=== PATIENT | female | born 1955 | race Asian ===

== ENCOUNTER 2017-07-26 19:21 | Inpatient (IN) | payer MEDICARE, MEDICAID ==
--- NOTE | 2017-07-26 19:36 | ED Physician Chart ---
ED Chief Complaint/HPI - Patient Information Date Seen:: 07/26/17 Time Seen:: 19:25 Chief Complaint:: abnormal labs History of Present Illness:: location: general quality: abnormal labs, elevated WBC severity: mild duration: one day context: SNF pt with lifelong epilepsy and ankylosing spondylitis. pt on seizure meds able to walk/talk lived in [place] lived with her sister and boyfriend prior to injury, Jun 6 pt had fall broke C4/C5 had surgery to repair spinal fracture. after the neck injury pt was unable to use arms or legs. pt in ICU for a few weeks, developed pneumonia, performed tracheostomy Jul 14. niece is at bedside and gives history. states pt is able to understand and interact with people but cannot speak due to tracheostomy. pt can mouth words. pt is awake, alert and in no acute distress. pt was at [facility] and had routine labs drawn today. abnormal findings so sent to ER for medical evaluation. pt does not report any acute discomfort. niece has spoken to patient and says patient is having some discomfort about the tracheostomy site. no fever, no tachycardia, no abnormal vital signs reported from facility or during transport. mod factors; none assoc s/s; none hx from niece and medics. and Dr. Mares. Historian:: EMS, Family Member Review:: Nurse's Note Reviewed, EMS run form Reviewed ED Review of Systems - Review of Systems General/Constitutional: No fever Skin: No rash Cardio Vascular: No edema Pulmonary: No cough GI: No vomiting, No diarrhea Allergic/Immuno: No angioedema Neurological: No seizure Family Medical History - Family Member Mother History Unknown: Yes ED Physical Exam - Physical Examination General/Constitutional: Awake, Well-developed, well-nourished, Alert, Non-toxic appearing Head: Atraumatic Eyes: Lids, conjuctiva normal, PERRL, EOMI Skin: Nl inspection ENMT: External ears, nose nl Neck: Nontender, No nuchal rigidity Respiratory: Nl effort/Exclusion, Clear to Auscultation (mild crackles bilateral lung base), No Wheeze/Rhonchi/Rales Cardio Vascular: RRR, No murmur, gallop, rubs, NL S1 S2 GI: No tenderness/rebounding/guarding : No CVA tenderness Extremities: No tenderness or effusion, No edema, Normal digits & nails Neuro/Psych: Alert/oriented ED Labs/Radiology/EKG Results - Lab Results Results: Laboratory Tests 07/26/17 07/26/17 07/26/17 20:56 20:56 20:56 WBC RBC Hgb Hct MCV MCH MCHC Differential RDW Plt Count MPV Neutrophils % Lymphocytes % Monocytes % Eosinophils % Basophils % Whole Bld Lactic Acid 1.23 Phenytoin 5.0 L Valproic Acid 30.9 L Carbamazepine 4.0 07/26/17 20:56 WBC 11.2 H RBC 2.61 L Hgb 8.1 L Hct 24.5 L MCV 94.1 MCH 30.9 MCHC Differential 32.8 RDW 15.9 Plt Count 337 MPV 7.0 Neutrophils % 75.2 Lymphocytes % 13.4 L Monocytes % 7.8 Eosinophils % 2.9 Basophils % 0.7 Whole Bld Lactic Acid Phenytoin Valproic Acid Carbamazepine - EKG Interpretations Comments:: EKG NSR [address] elevation no acute ST depression normal axis otherwise normal EKG pt reports no chest pain ER READ ED Assessment - Assessment General Assessment: pt was diagnosed with pneumonia about 2 weeks ago and initially treated in [facility]. admitted to ICU placed on cefipime, then switched to zosyn. staph aureus pneumonia. was treated for at least 5 days on cefipime then switched to zosyn. pt likely received a 7 day course of IV antibiotic. pt had tactile fever 2 days ago as measured by niece. ED Septic Shock - . Is Septic Shock (SBP<90, OR Lactate>4 mmol\L) present?: No ED Reassessment (Disposition) - Reassessment Reassessment:: pt stable vital signs during ER stay. CXR no acute rib fracture no acute pneumothorax right lower lobe infiltrate pleural effusion right side ER READ Reassessment Condition:: Improved - Diagnosis Diagnosis:: right lower lobe pneumonia - Patient Disposition Discharge/Transfer:: Acute Care w/in this hosp Admitting Medical Physician:: Maegan Mares Time:: 23:00 Condition at Disposition:: Stable, Improved
[2017-07-26] MEDS ORDERED: Sodium Chloride 0.9% 1,000 ML IV ONE (20:30)
[2017-07-26 21:14] LABS: % BASOPHILS 0.7 % (0.0-2.0); % EOSINOPHILS 2.9 % (0.0-5.0); % LYMPHOCYTES 13.4 % (20.0-50.0); % MONOCYTES 7.8 % (2.0-10.0); % NEUTROPHILS 75.2 % (40.0-80.0); BASOPHILE ABSOLUTE 0.1 Th/cumm (0-0.2); EOSINOPHILE ABSOLUTE 0.3 Th/cmm (0.1-0.4); HEMATOCRIT 24.5 % (41.0-60); HEMOGLOBIN 8.1 gm/dL (12-16); LYMPHOCYTE ABSOLUTE 1.5 Th/cmm (1.5-3.0); MEAN CELL VOLUME 94.1 fl (81-100); MEAN CORPUSCULAR HEMOGLOBIN 30.9 pg (27.0-31.0); MEAN CORPUSCULAR HGB CONC 32.8 pg (28.0-36.0); MONOCYTE ABSOLUTE 0.9 Th/cmm (0.3-1.0); NEUTROPHILE ABSOLUTE 8.4 Th/cmm (1.8-8.0); PLATELET COUNT 337 Th/cmm (150-400); RED BLOOD COUNT 2.61 Mil/cmm (3.80-5.10); RED CELL DISTRIBUTION WIDTH 15.9 % (11.5-20.0); WHITE BLOOD COUNT 11.2 Th/cmm (4.8-10.8)
[2017-07-26 21:24] LABS: URINE BILIRUBIN NEGATIVE (NEGATIVE); URINE BLOOD TRACE (NEGATIVE); URINE GLUCOSE (UA) NEGATIVE (NEGATIVE); URINE KETONE NEGATIVE (NEGATIVE); URINE LEUKOCYTE ESTERASE TRACE (NEGATIVE); URINE MICROSCOPIC INDICATED? YES; URINE NITRATE NEGATIVE (NEGATIVE); URINE PH 5.5 (4.6 - 8.0); URINE PROTEIN NEGATIVE (NEGATIVE); URINE SOURCE FOLEY PORT; URINE UROBILINOGEN 0.2 E.U./dL (0.2 - 1.0)
[2017-07-26 21:25] LABS: ALB/GLOB RATIO 0.5 (1.0-1.8); ALBUMIN 2.7 gm/dL (3.7-5.3); ALKALINE PHOSPHATASE 152 U/L (34-104); BILIRUBIN,TOTAL 0.5 mg/dL (0.3-1.0); BUN - UREA NITROGEN 37 mg/dL (7-25); CALCIUM SERUM 8.7 mg/dL (8.6-10.3); CARBON DIOXIDE 27.8 mEq/L (21.0-31.0); CHLORIDE 91 mEq/L (98-107); CREATININE - SERUM 0.6 mg/dL (0.6-1.2); GFR AFRICAN-AMERICAN > 60.0 ml/min (>90); GFR NON AFRICAN-AMERICAN > 60.0 ml/min; GLUCOSE 136 mg/dL (70-105); SGOT 38 U/L (13-39); SGPT/ALT 56 U/L (7-52); SODIUM SERUM 123 mEq/L (136-145)
[2017-07-26] MEDS ORDERED: Piperacillin Sodium/Tazobact 3.375 gm Vial IV ONE (21:35)
[2017-07-26 21:39] LABS: URINE CLARITY SLIGHTLY HAZY (CLEAR); URINE COLOR YELLOW; URINE EPITHELIAL CELLS FEW /lpf (FEW)
[2017-07-26 21:40] LABS: URINE BACTERIA 1+ /hpf (NONE SEEN)
[2017-07-26 22:55] LABS: ANION GAP 10.3 (7.0-16.0); POTASSIUM SERUM 6.1 mEq/L (3.5-5.1)
[2017-07-27] MEDS ORDERED: Pneumococcal Vaccine 0.5 mL Vial IM ONE (00:52)
[2017-07-27] MEDS ORDERED: Influenza Vaccine 0.5 mL Syr IM ONE (00:52)
[2017-07-27] MEDS: Sodium Chloride 0.9% 1,000 ML IV SCH ×2 (00:57→11:00)
[2017-07-27 05:36] LABS: ANION GAP 9.3 (7.0-16.0); BUN - UREA NITROGEN 30 mg/dL (7-25); CALCIUM SERUM 8.6 mg/dL (8.6-10.3); CARBON DIOXIDE 28.9 mEq/L (21.0-31.0); CHLORIDE 100 mEq/L (98-107); CREATININE - SERUM 0.4 mg/dL (0.6-1.2); GFR AFRICAN-AMERICAN > 60.0 ml/min (>90); GFR NON AFRICAN-AMERICAN > 60.0 ml/min; GLUCOSE 137 mg/dL (70-105); POTASSIUM SERUM 4.2 mEq/L (3.5-5.1); SODIUM SERUM 134 mEq/L (136-145)
[2017-07-27 05:52] LABS: % BASOPHILS 0.6 % (0.0-2.0); % EOSINOPHILS 3.7 % (0.0-5.0); % LYMPHOCYTES 20.9 % (20.0-50.0); % MONOCYTES 8.2 % (2.0-10.0); % NEUTROPHILS 66.6 % (40.0-80.0); BASOPHILE ABSOLUTE 0.1 Th/cumm (0-0.2); EOSINOPHILE ABSOLUTE 0.4 Th/cmm (0.1-0.4); HEMATOCRIT 24.6 % (41.0-60); LYMPHOCYTE ABSOLUTE 2.2 Th/cmm (1.5-3.0); MEAN CELL VOLUME 94.8 fl (81-100); MEAN CORPUSCULAR HEMOGLOBIN 30.9 pg (27.0-31.0); MEAN CORPUSCULAR HGB CONC 32.6 pg (28.0-36.0); MONOCYTE ABSOLUTE 0.8 Th/cmm (0.3-1.0); NEUTROPHILE ABSOLUTE 6.8 Th/cmm (1.8-8.0); PLATELET COUNT 381 Th/cmm (150-400); RED BLOOD COUNT 2.59 Mil/cmm (3.80-5.10); RED CELL DISTRIBUTION WIDTH 16.3 % (11.5-20.0); WHITE BLOOD COUNT 10.3 Th/cmm (4.8-10.8)
[2017-07-27] MEDS ORDERED: Piperacillin Sodium/Tazobact 3.375 gm Vial IV ONE (05:52)
--- NOTE | 2017-07-27 07:56 | Diagnostic Imaging Report ---
Portable chest x-ray HISTORY: Shortness of breath The heart appears enlarged. There appears to be elevation right hemidiaphragm. There is an approximate 1.4 cm density projecting over the left mid chest. This may be associated with patient's overlying respiratory tubing. A follow-up exam recommended for exclusion of a pulmonary parenchymal nodule. Tracheostomy seen. IMPRESSION: 1. Density projecting over the left mid chest. The finding may be related to the overlying respiratory tubing. However, a follow-up exam is needed for exclusion of a pulmonary nodule.
[2017-07-27] MEDS: Chlorhexidine Gluconate 0.12% 15mL Mouthwash MM SCH ×2 (09:26→19:57)
[2017-07-27] MEDS: Vancomycin HCl 1.5 GM in Sodium Chloride 0.9% 500 ML IV SCH ×2 (09:29→21:23)
--- NOTE | 2017-07-27 10:02 | History and Physical ---
History of Present Illness - HPI Vital Signs: Last Vital Signs Temp 99.4 F 07/27/17 04:00 Pulse 60 07/27/17 09:43 Resp 16 07/27/17 06:00 BP 127/45 07/27/17 06:00 Pulse Ox 99 07/27/17 09:43 Family Medical History - Family Member Mother History Unknown: Yes - Medications Home Medications: Home Medication Medication Instructions Recorded Type Acetaminophen [Tylenol] 650 mg GT BID 07/26/17 History Acetaminophen [Tylenol] 650 mg GT Q4HR PRN 07/26/17 History Acetaminophen [Tylenol] 650 mg GT Q4HR PRN 07/26/17 History Amlodipine Besylate 10 mg GT DAILY 07/26/17 History Ascorbic Acid [Vitamin C] 500 mg GT DAILY 07/26/17 History Aspirin 81 mg GT DAILY 07/26/17 History Bisacodyl [Dulcolax 10 Mg Supp] 10 mg RC DAILY PRN 07/26/17 History Carbamazepine 100 mg GT QID 07/26/17 History Cran/Vitc/Mannose/Fos/Bromeln 30 ml GT DAILY 07/26/17 History [Uti-Stat 887 ml] Doxazosin Mesylate [Cardura*] 4 mg GT DAILY 07/26/17 History Fleet Enema [Fleet Enema] 1 bottle RC Q48HR PRN 07/26/17 History Magnesium Hydroxide [Milk of 30 ml GT HS PRN 07/26/17 History Magnesia] Multivitamin with Minerals 1 tab GT DAILY 07/26/17 History [Multivitamins with Minerals] Nitroglycerin [Nitrostat*] 0.3 mg SL Q5MIN PRN 07/26/17 History Phenytoin 100 mg GT TID 07/26/17 History Simvastatin [Zocor] 40 mg GT HS 07/26/17 History Valproic Acid [Depakene] 250 mg GT QID 07/26/17 History - Allergies Allergies/Adverse Reactions: Allergies Allergy/AdvReac Type Severity Reaction Status Date / Time No Known Allergies Allergy Verified 07/26/17 19:38 - Lab Results All Lab Results last 24 hours: Laboratory Results - last 24 hr 07/27/17 07/27/17 07/27/17 04:35 04:35 04:35 WBC 10.3 RBC 2.59 L Hgb 8.0 L Hct 24.6 L MCV 94.8 MCH 30.9 MCHC Differential 32.6 RDW 16.3 Plt Count 381 MPV 7.0 Neutrophils % 66.6 Lymphocytes % 20.9 Monocytes % 8.2 Eosinophils % 3.7 Basophils % 0.6 Sodium 134 L Potassium 4.2 Chloride 100 Carbon Dioxide 28.9 Anion Gap 9.3 BUN 30 H Creatinine 0.4 L Est GFR ( Amer) > 60.0 Est GFR (Non-Af Amer) > 60.0 BUN/Creatinine Ratio 75.0 Glucose 137 H Whole Bld Lactic Acid 0.93 Calcium 8.6 TSH 07/27/17 04:35 WBC RBC Hgb Hct MCV MCH MCHC Differential RDW Plt Count MPV Neutrophils % Lymphocytes % Monocytes % Eosinophils % Basophils % Sodium Potassium Chloride Carbon Dioxide Anion Gap BUN Creatinine Est GFR ( Amer) Est GFR (Non-Af Amer) BUN/Creatinine Ratio Glucose Whole Bld Lactic Acid Calcium TSH 2.28
[2017-07-27] MEDS: Albuterol/Ipratropium Neb 3 ML AERS HHN SCH ×3 (15:52→22:48)
[2017-07-27] MEDS: Budesonide 0.5 Mg/2 mL Ud HHN SCH (19:01)
[2017-07-27] MEDS ORDERED: Hydrocodone/APAP 5mg/325mg Tab GT PRN (19:36)
[2017-07-27] MEDS: Hydrocodone/APAP 10 mg/325 mg Tab GT PRN (19:57)
[2017-07-28] MEDS: Hydrocodone/APAP 10 mg/325 mg Tab GT PRN ×2 (00:50→09:00)
[2017-07-28] MEDS: Sodium Chloride 0.9% 1,000 ML IV SCH ×2 (02:57→20:55)
[2017-07-28] MEDS: Albuterol/Ipratropium Neb 3 ML AERS HHN SCH ×6 (03:00→23:07)
[2017-07-28] MEDS: Budesonide 0.5 Mg/2 mL Ud HHN SCH ×2 (06:52→19:01)
[2017-07-28 07:47] LABS: % BASOPHILS 0.2 % (0.0-2.0); % EOSINOPHILS 2.3 % (0.0-5.0); % LYMPHOCYTES 17.4 % (20.0-50.0); % MONOCYTES 11.1 % (2.0-10.0); EOSINOPHILE ABSOLUTE 0.2 Th/cmm (0.1-0.4); HEMATOCRIT 25.9 % (41.0-60); HEMOGLOBIN 8.5 gm/dL (12-16); LYMPHOCYTE ABSOLUTE 1.7 Th/cmm (1.5-3.0); MEAN CELL VOLUME 93.5 fl (81-100); MEAN CORPUSCULAR HEMOGLOBIN 30.6 pg (27.0-31.0); MEAN CORPUSCULAR HGB CONC 32.7 pg (28.0-36.0); MEAN PLATELET VOLUME 6.7 fl; MONOCYTE ABSOLUTE 1.1 Th/cmm (0.3-1.0); NEUTROPHILE ABSOLUTE 6.7 Th/cmm (1.8-8.0); PLATELET COUNT 363 Th/cmm (150-400); RED BLOOD COUNT 2.77 Mil/cmm (3.80-5.10); RED CELL DISTRIBUTION WIDTH 16.3 % (11.5-20.0); WHITE BLOOD COUNT 9.7 Th/cmm (4.8-10.8)
[2017-07-28] MEDS: Chlorhexidine Gluconate 0.12% 15mL Mouthwash MM SCH ×2 (08:05→20:49)
[2017-07-28 08:44] LABS: ALB/GLOB RATIO 0.5 (1.0-1.8); ALBUMIN 2.4 gm/dL (3.7-5.3); ALKALINE PHOSPHATASE 163 U/L (34-104); ANION GAP 10.3 (7.0-16.0); BILIRUBIN,DIRECT 0.21 mg/dL (0.0-0.2); BILIRUBIN,TOTAL 0.5 mg/dL (0.3-1.0); BUN - UREA NITROGEN 22 mg/dL (7-25); CALCIUM SERUM 8.3 mg/dL (8.6-10.3); CARBON DIOXIDE 26.8 mEq/L (21.0-31.0); CHLORIDE 104 mEq/L (98-107); CREATININE - SERUM 0.4 mg/dL (0.6-1.2); GFR AFRICAN-AMERICAN > 60.0 ml/min (>90); GFR NON AFRICAN-AMERICAN > 60.0 ml/min; GLUCOSE 135 mg/dL (70-105); POTASSIUM SERUM 4.1 mEq/L (3.5-5.1); SGOT 43 U/L (13-39); SGPT/ALT 56 U/L (7-52); SODIUM SERUM 137 mEq/L (136-145); TOTAL PROTEIN,SERUM 7.1 gm/dL (6.0-8.3)
--- NOTE | 2017-07-28 09:00 | Diagnostic Imaging Report ---
Portable chest x-ray HISTORY: Shortness of breath Compared to prior exam 07/26/2017, there remains a density in the right lower hemithorax. Changes may be associated with pleural fluid. A CT scan would provide for further assessment A faint linear density is noted in the left perihilar region suggesting subsegmental atelectasis. IMPRESSION: 1. Persistent density right lower hemithorax. Exact location of the right hemidiaphragm is unclear. Changes may be associated with pleural fluid. A CT scan would provide further assessment if needed. 2. Faint linear density within the left perihilar region probably associated with subsegmental atelectasis.
[2017-07-28] MEDS: Aspirin 81mg Chewable Tab GT SCH (09:13)
[2017-07-28] MEDS: Ascorbic Acid 500 mg/5 mL UDC GT SCH (09:13)
[2017-07-28] MEDS: Vancomycin HCl 1.5 GM in Sodium Chloride 0.9% 500 ML IV SCH ×2 (09:15→20:49)
--- NOTE | 2017-07-28 09:29 | General Progress Note ---
Subjective - Review of Systems Events since last encounter: patient in no acute distress Objective - Results Result Diagrams: 07/28/17 07:30 07/28/17 07:30 Recent Labs: Laboratory Last Values WBC 9.7 Th/cmm (4.8-10.8) 07/28/17 07:30 RBC 2.77 Mil/cmm (3.80-5.10) L 07/28/17 07:30 Hgb 8.5 gm/dL (12-16) L 07/28/17 07:30 Hct 25.9 % (41.0-60) L 07/28/17 07:30 MCV 93.5 fl (81-100) 07/28/17 07:30 MCH 30.6 pg (27.0-31.0) 07/28/17 07:30 MCHC Differential 32.7 pg (28.0-36.0) 07/28/17 07:30 RDW 16.3 % (11.5-20.0) 07/28/17 07:30 Plt Count 363 Th/cmm (150-400) 07/28/17 07:30 MPV 6.7 fl 07/28/17 07:30 Neutrophils % 69.0 % (40.0-80.0) 07/28/17 07:30 Lymphocytes % 17.4 % (20.0-50.0) L 07/28/17 07:30 Monocytes % 11.1 % (2.0-10.0) H 07/28/17 07:30 Eosinophils % 2.3 % (0.0-5.0) 07/28/17 07:30 Basophils % 0.2 % (0.0-2.0) 07/28/17 07:30 Sodium 137 mEq/L (136-145) 07/28/17 07:30 Potassium 4.1 mEq/L (3.5-5.1) 07/28/17 07:30 Chloride 104 mEq/L (98-107) 07/28/17 07:30 Carbon Dioxide 26.8 mEq/L (21.0-31.0) 07/28/17 07:30 Anion Gap 10.3 (7.0-16.0) 07/28/17 07:30 BUN 22 mg/dL (7-25) 07/28/17 07:30 Creatinine 0.4 mg/dL (0.6-1.2) L 07/28/17 07:30 Est GFR ( Amer) > 60.0 ml/min (>90) 07/28/17 07:30 Est GFR (Non-Af Amer) > 60.0 ml/min 07/28/17 07:30 BUN/Creatinine Ratio 55.0 07/28/17 07:30 Glucose 135 mg/dL (70-105) H 07/28/17 07:30 Whole Bld Lactic Acid 0.93 mmol/L (0.60-1.99) 07/27/17 04:35 Calcium 8.3 mg/dL (8.6-10.3) L 07/28/17 07:30 Total Bilirubin 0.5 mg/dL (0.3-1.0) 07/28/17 07:30 Direct Bilirubin 0.21 mg/dL (0.0-0.2) H 07/28/17 07:30 AST 43 U/L (13-39) H 07/28/17 07:30 ALT 56 U/L (7-52) H 07/28/17 07:30 Alkaline Phosphatase 163 U/L (34-104) H 07/28/17 07:30 Ammonia 77 umol/L (16-53) H 07/28/17 07:30 Total Protein 7.1 gm/dL (6.0-8.3) 07/28/17 07:30 Albumin 2.4 gm/dL (3.7-5.3) L 07/28/17 07:30 Globulin 4.7 gm/dL 07/28/17 07:30 Albumin/Globulin Ratio 0.5 (1.0-1.8) L 07/28/17 07:30 TSH 2.28 uIU/ml (0.34-5.60) 07/27/17 04:35 Urine Source [place] 07/26/17 20:30 Urine Color YELLOW 07/26/17 20:30 Urine Clarity SLIGHTLY HAZY (CLEAR) 07/26/17 20:30 Urine pH 5.5 (4.6 - 8.0) 07/26/17 20:30 Ur Specific [place] 1.010 (1.005-1.030) 07/26/17 20:30 Urine Protein NEGATIVE mg/dL (NEGATIVE) 07/26/17 20:30 Urine Glucose (UA) NEGATIVE mg/dL (NEGATIVE) 07/26/17 20:30 Urine Ketones NEGATIVE mg/dL (NEGATIVE) 07/26/17 20:30 Urine Blood TRACE (NEGATIVE) 07/26/17 20:30 Urine Nitrate NEGATIVE (NEGATIVE) 07/26/17 20:30 Urine Bilirubin NEGATIVE (NEGATIVE) 07/26/17 20:30 Urine Urobilinogen 0.2 E.U./dL (0.2 - 1.0) 07/26/17 20:30 Ur Leukocyte Esterase TRACE (NEGATIVE) H 07/26/17 20:30 Urine RBC 2-5 /hpf (0-5) 07/26/17 20:30 Urine WBC 10-25 /hpf (0-5) H 07/26/17 20:30 Ur Epithelial Cells FEW /lpf (FEW) 07/26/17 20:30 Urine Bacteria 1+ /hpf (NONE SEEN) H 07/26/17 20:30 Vancomycin Trough 17.4 ug/mL (10-20) 07/28/17 07:30 Phenytoin 5.0 ug/ml (10.0-20.0) L 07/26/17 20:56 Valproic Acid 30.9 ug/mL (50.0-100.0) L 07/26/17 20:56 Carbamazepine 4.0 ug/ml (4.0-12.0) 07/26/17 20:56 - Physical Exam Vitals and I&O: Vital Signs Temp 101.9 F 07/28/17 04:00 Pulse 79 07/28/17 09:12 Resp 12 07/28/17 06:55 BP 156/59 07/28/17 08:45 Pulse Ox 100 07/28/17 07:00 Intake & Output 07/27/17 07/28/17 07/28/17 18:59 06:59 18:59 Intake Total 1645 1400 Output Total 850 900 Balance 795 500 Weight (lbs) 81.703 kg 81.76 kg Intake: Intake, IV Amount 1045 600 Piperacillin Sodium/ 50 100 Tazobact 3.375 gm In Sodium Chloride 0.9% 50 ml @ 100 mls/hr IV Q8HR [facility] Rx#:[id number] Sodium Chloride 0.9% 1, 495 000 ml @ 100 mls/hr IV . Q10H [facility] Rx#:[id number] Vancomycin HCl 1.5 gm In 500 500 Sodium Chloride 0.9% 500 ml @ 250 mls/hr IV Q12H [facility] Rx#:[id number] Tube Feeding 400 600 Other 200 200 Output: Urine 850 900 Other: # Bowel Movements 0 0 Active Medications: Current Medications Acetaminophen (Tylenol 650mg/20.3ml Suspension) 650 mg PO Q6H PRN PRN Reason: Fever > 101 Stop: 09/25/17 19:32 Last Admin: 07/28/17 04:02 Dose: 650 mg Acetaminophen (Tylenol 650mg/20.3ml Suspension) 650 mg GT BID [facility] Stop: 09/26/17 08:59 Last Admin: 07/28/17 09:11 Dose: 650 mg Acetaminophen/Hydrocodone Bitart ([place] 5mg/325mg) 1 tab GT Q4H PRN PRN Reason: Pain (Moderate) Stop: 09/25/17 19:35 Acetaminophen/Hydrocodone Bitart ([place] 10 Mg/325 Mg) 1 tab GT Q4H PRN PRN Reason: Pain (Severe) Stop: 09/25/17 19:36 Last Admin: 07/28/17 09:00 Dose: 1 tab Acetylcysteine (Mucomyst 20%) 5 ml HHN BIDRT [facility] Stop: 09/25/17 18:59 Last Admin: 07/28/17 06:52 Dose: 5 ml Albuterol/Ipratropium (Duoneb Neb) 3 ml HHN Q4HRT [facility] Stop: 09/25/17 14:59 Last Admin: 07/28/17 06:52 Dose: 3 ml Amlodipine Besylate (Norvasc) 10 mg GT DAILY [facility] Stop: 09/26/17 08:59 Last Admin: 07/28/17 08:45 Dose: 10 mg Ascorbic Acid (Vitamin C) 500 mg GT DAILY [facility] Stop: 09/26/17 08:59 Last Admin: 07/28/17 09:13 Dose: 500 mg Aspirin (Aspirin Chewable) 81 mg GT DAILY [facility] Stop: 09/26/17 08:59 Last Admin: 07/28/17 09:13 Dose: 81 mg Bisacodyl (Dulcolax 10 Mg Supp) 10 mg RC DAILY PRN PRN Reason: Constipation Stop: 09/25/17 20:37 Budesonide (Pulmicort) 0.5 mg HHN BIDRT [facility] Stop: 09/25/17 18:59 Last Admin: 07/28/17 06:52 Dose: 0.5 mg Chlorhexidine Gluconate (Peridex) 15 ml MM 0800,1999 [facility] Stop: 09/25/17 08:59 Last Admin: 07/28/17 08:05 Dose: 15 ml Piperacillin Sod/Tazobactam (Sod 3.375 gm/ Sodium Chloride) 50 mls @ 100 mls/ hr IV Q8HR [facility] Stop: 09/25/17 04:59 Last Infusion: 07/28/17 05:50 Dose: Infused Vancomycin HCl 1.5 gm/ Sodium (Chloride) 500 mls @ 250 mls/hr IV Q12H [facility] Stop: 09/25/17 08:59 Last Admin: 07/28/17 09:15 Dose: 250 mls/hr Sodium Chloride (Nacl 0.9%) 1,000 mls @ 40 mls/hr IV .Q24H [facility] Stop: 09/25/17 20:44 Last Admin: 07/28/17 02:57 Dose: 40 mls/hr Lorazepam (Ativan) 1 mg IVP Q6HR PRN; Protocol PRN Reason: AGITATION Stop: 09/26/17 01:09 Last Admin: 07/28/17 01:29 Dose: 1 mg Miscellaneous (Vancomycin Iv Per Pharmacy) 1 ea MC PRN PRN PRN Reason: PROTOCOL Stop: 09/25/17 00:28 - Procedures Procedures: Procedures Procedure Code Date RESPIRATORY VENTILATION, 24-96 CONSECUTIVE HOURS [id number] 07/26/17
--- NOTE | 2017-07-28 09:29 | General Progress Note ---
Subjective - Review of Systems Events since last encounter: patient in no acute distress Objective - Results Result Diagrams: 07/28/17 07:30 07/28/17 07:30 Recent Labs: Laboratory Last Values WBC 9.7 Th/cmm (4.8-10.8) 07/28/17 07:30 RBC 2.77 Mil/cmm (3.80-5.10) L 07/28/17 07:30 Hgb 8.5 gm/dL (12-16) L 07/28/17 07:30 Hct 25.9 % (41.0-60) L 07/28/17 07:30 MCV 93.5 fl (81-100) 07/28/17 07:30 MCH 30.6 pg (27.0-31.0) 07/28/17 07:30 MCHC Differential 32.7 pg (28.0-36.0) 07/28/17 07:30 RDW 16.3 % (11.5-20.0) 07/28/17 07:30 Plt Count 363 Th/cmm (150-400) 07/28/17 07:30 MPV 6.7 fl 07/28/17 07:30 Neutrophils % 69.0 % (40.0-80.0) 07/28/17 07:30 Lymphocytes % 17.4 % (20.0-50.0) L 07/28/17 07:30 Monocytes % 11.1 % (2.0-10.0) H 07/28/17 07:30 Eosinophils % 2.3 % (0.0-5.0) 07/28/17 07:30 Basophils % 0.2 % (0.0-2.0) 07/28/17 07:30 Sodium 137 mEq/L (136-145) 07/28/17 07:30 Potassium 4.1 mEq/L (3.5-5.1) 07/28/17 07:30 Chloride 104 mEq/L (98-107) 07/28/17 07:30 Carbon Dioxide 26.8 mEq/L (21.0-31.0) 07/28/17 07:30 Anion Gap 10.3 (7.0-16.0) 07/28/17 07:30 BUN 22 mg/dL (7-25) 07/28/17 07:30 Creatinine 0.4 mg/dL (0.6-1.2) L 07/28/17 07:30 Est GFR ( Amer) > 60.0 ml/min (>90) 07/28/17 07:30 Est GFR (Non-Af Amer) > 60.0 ml/min 07/28/17 07:30 BUN/Creatinine Ratio 55.0 07/28/17 07:30 Glucose 135 mg/dL (70-105) H 07/28/17 07:30 Whole Bld Lactic Acid 0.93 mmol/L (0.60-1.99) 07/27/17 04:35 Calcium 8.3 mg/dL (8.6-10.3) L 07/28/17 07:30 Total Bilirubin 0.5 mg/dL (0.3-1.0) 07/28/17 07:30 Direct Bilirubin 0.21 mg/dL (0.0-0.2) H 07/28/17 07:30 AST 43 U/L (13-39) H 07/28/17 07:30 ALT 56 U/L (7-52) H 07/28/17 07:30 Alkaline Phosphatase 163 U/L (34-104) H 07/28/17 07:30 Ammonia 77 umol/L (16-53) H 07/28/17 07:30 Total Protein 7.1 gm/dL (6.0-8.3) 07/28/17 07:30 Albumin 2.4 gm/dL (3.7-5.3) L 07/28/17 07:30 Globulin 4.7 gm/dL 07/28/17 07:30 Albumin/Globulin Ratio 0.5 (1.0-1.8) L 07/28/17 07:30 TSH 2.28 uIU/ml (0.34-5.60) 07/27/17 04:35 Urine Source [place] 07/26/17 20:30 Urine Color YELLOW 07/26/17 20:30 Urine Clarity SLIGHTLY HAZY (CLEAR) 07/26/17 20:30 Urine pH 5.5 (4.6 - 8.0) 07/26/17 20:30 Ur Specific [place] 1.010 (1.005-1.030) 07/26/17 20:30 Urine Protein NEGATIVE mg/dL (NEGATIVE) 07/26/17 20:30 Urine Glucose (UA) NEGATIVE mg/dL (NEGATIVE) 07/26/17 20:30 Urine Ketones NEGATIVE mg/dL (NEGATIVE) 07/26/17 20:30 Urine Blood TRACE (NEGATIVE) 07/26/17 20:30 Urine Nitrate NEGATIVE (NEGATIVE) 07/26/17 20:30 Urine Bilirubin NEGATIVE (NEGATIVE) 07/26/17 20:30 Urine Urobilinogen 0.2 E.U./dL (0.2 - 1.0) 07/26/17 20:30 Ur Leukocyte Esterase TRACE (NEGATIVE) H 07/26/17 20:30 Urine RBC 2-5 /hpf (0-5) 07/26/17 20:30 Urine WBC 10-25 /hpf (0-5) H 07/26/17 20:30 Ur Epithelial Cells FEW /lpf (FEW) 07/26/17 20:30 Urine Bacteria 1+ /hpf (NONE SEEN) H 07/26/17 20:30 Vancomycin Trough 17.4 ug/mL (10-20) 07/28/17 07:30 Phenytoin 5.0 ug/ml (10.0-20.0) L 07/26/17 20:56 Valproic Acid 30.9 ug/mL (50.0-100.0) L 07/26/17 20:56 Carbamazepine 4.0 ug/ml (4.0-12.0) 07/26/17 20:56 - Physical Exam Vitals and I&O: Vital Signs Temp 101.9 F 07/28/17 04:00 Pulse 79 07/28/17 09:12 Resp 12 07/28/17 06:55 BP 156/59 07/28/17 08:45 Pulse Ox 100 07/28/17 07:00 Intake & Output 07/27/17 07/28/17 07/28/17 18:59 06:59 18:59 Intake Total 1645 1400 Output Total 850 900 Balance 795 500 Weight (lbs) 81.703 kg 81.76 kg Intake: Intake, IV Amount 1045 600 Piperacillin Sodium/ 50 100 Tazobact 3.375 gm In Sodium Chloride 0.9% 50 ml @ 100 mls/hr IV Q8HR [facility] Rx#:[id number] Sodium Chloride 0.9% 1, 495 000 ml @ 100 mls/hr IV . Q10H [facility] Rx#:[id number] Vancomycin HCl 1.5 gm In 500 500 Sodium Chloride 0.9% 500 ml @ 250 mls/hr IV Q12H [facility] Rx#:[id number] Tube Feeding 400 600 Other 200 200 Output: Urine 850 900 Other: # Bowel Movements 0 0 Active Medications: Current Medications Acetaminophen (Tylenol 650mg/20.3ml Suspension) 650 mg PO Q6H PRN PRN Reason: Fever > 101 Stop: 09/25/17 19:32 Last Admin: 07/28/17 04:02 Dose: 650 mg Acetaminophen (Tylenol 650mg/20.3ml Suspension) 650 mg GT BID [facility] Stop: 09/26/17 08:59 Last Admin: 07/28/17 09:11 Dose: 650 mg Acetaminophen/Hydrocodone Bitart ([place] 5mg/325mg) 1 tab GT Q4H PRN PRN Reason: Pain (Moderate) Stop: 09/25/17 19:35 Acetaminophen/Hydrocodone Bitart ([place] 10 Mg/325 Mg) 1 tab GT Q4H PRN PRN Reason: Pain (Severe) Stop: 09/25/17 19:36 Last Admin: 07/28/17 09:00 Dose: 1 tab Acetylcysteine (Mucomyst 20%) 5 ml HHN BIDRT [facility] Stop: 09/25/17 18:59 Last Admin: 07/28/17 06:52 Dose: 5 ml Albuterol/Ipratropium (Duoneb Neb) 3 ml HHN Q4HRT [facility] Stop: 09/25/17 14:59 Last Admin: 07/28/17 06:52 Dose: 3 ml Amlodipine Besylate (Norvasc) 10 mg GT DAILY [facility] Stop: 09/26/17 08:59 Last Admin: 07/28/17 08:45 Dose: 10 mg Ascorbic Acid (Vitamin C) 500 mg GT DAILY [facility] Stop: 09/26/17 08:59 Last Admin: 07/28/17 09:13 Dose: 500 mg Aspirin (Aspirin Chewable) 81 mg GT DAILY [facility] Stop: 09/26/17 08:59 Last Admin: 07/28/17 09:13 Dose: 81 mg Bisacodyl (Dulcolax 10 Mg Supp) 10 mg RC DAILY PRN PRN Reason: Constipation Stop: 09/25/17 20:37 Budesonide (Pulmicort) 0.5 mg HHN BIDRT [facility] Stop: 09/25/17 18:59 Last Admin: 07/28/17 06:52 Dose: 0.5 mg Chlorhexidine Gluconate (Peridex) 15 ml MM 0800,1999 [facility] Stop: 09/25/17 08:59 Last Admin: 07/28/17 08:05 Dose: 15 ml Piperacillin Sod/Tazobactam (Sod 3.375 gm/ Sodium Chloride) 50 mls @ 100 mls/ hr IV Q8HR [facility] Stop: 09/25/17 04:59 Last Infusion: 07/28/17 05:50 Dose: Infused Vancomycin HCl 1.5 gm/ Sodium (Chloride) 500 mls @ 250 mls/hr IV Q12H [facility] Stop: 09/25/17 08:59 Last Admin: 07/28/17 09:15 Dose: 250 mls/hr Sodium Chloride (Nacl 0.9%) 1,000 mls @ 40 mls/hr IV .Q24H [facility] Stop: 09/25/17 20:44 Last Admin: 07/28/17 02:57 Dose: 40 mls/hr Lorazepam (Ativan) 1 mg IVP Q6HR PRN; Protocol PRN Reason: AGITATION Stop: 09/26/17 01:09 Last Admin: 07/28/17 01:29 Dose: 1 mg Miscellaneous (Vancomycin Iv Per Pharmacy) 1 ea [facility] PRN PRN PRN Reason: PROTOCOL Stop: 09/25/17 00:28 - Procedures Procedures: Procedures Procedure Code Date RESPIRATORY VENTILATION, 24-96 CONSECUTIVE HOURS [id number] 07/26/17
--- NOTE | 2017-07-28 09:29 | General Progress Note ---
Subjective - Review of Systems Events since last encounter: patient in no acute distress Objective - Results Result Diagrams: 07/28/17 07:30 07/28/17 07:30 Recent Labs: Laboratory Last Values WBC 9.7 Th/cmm (4.8-10.8) 07/28/17 07:30 RBC 2.77 Mil/cmm (3.80-5.10) L 07/28/17 07:30 Hgb 8.5 gm/dL (12-16) L 07/28/17 07:30 Hct 25.9 % (41.0-60) L 07/28/17 07:30 MCV 93.5 fl (81-100) 07/28/17 07:30 MCH 30.6 pg (27.0-31.0) 07/28/17 07:30 MCHC Differential 32.7 pg (28.0-36.0) 07/28/17 07:30 RDW 16.3 % (11.5-20.0) 07/28/17 07:30 Plt Count 363 Th/cmm (150-400) 07/28/17 07:30 MPV 6.7 fl 07/28/17 07:30 Neutrophils % 69.0 % (40.0-80.0) 07/28/17 07:30 Lymphocytes % 17.4 % (20.0-50.0) L 07/28/17 07:30 Monocytes % 11.1 % (2.0-10.0) H 07/28/17 07:30 Eosinophils % 2.3 % (0.0-5.0) 07/28/17 07:30 Basophils % 0.2 % (0.0-2.0) 07/28/17 07:30 Sodium 137 mEq/L (136-145) 07/28/17 07:30 Potassium 4.1 mEq/L (3.5-5.1) 07/28/17 07:30 Chloride 104 mEq/L (98-107) 07/28/17 07:30 Carbon Dioxide 26.8 mEq/L (21.0-31.0) 07/28/17 07:30 Anion Gap 10.3 (7.0-16.0) 07/28/17 07:30 BUN 22 mg/dL (7-25) 07/28/17 07:30 Creatinine 0.4 mg/dL (0.6-1.2) L 07/28/17 07:30 Est GFR ( Amer) > 60.0 ml/min (>90) 07/28/17 07:30 Est GFR (Non-Af Amer) > 60.0 ml/min 07/28/17 07:30 BUN/Creatinine Ratio 55.0 07/28/17 07:30 Glucose 135 mg/dL (70-105) H 07/28/17 07:30 Whole Bld Lactic Acid 0.93 mmol/L (0.60-1.99) 07/27/17 04:35 Calcium 8.3 mg/dL (8.6-10.3) L 07/28/17 07:30 Total Bilirubin 0.5 mg/dL (0.3-1.0) 07/28/17 07:30 Direct Bilirubin 0.21 mg/dL (0.0-0.2) H 07/28/17 07:30 AST 43 U/L (13-39) H 07/28/17 07:30 ALT 56 U/L (7-52) H 07/28/17 07:30 Alkaline Phosphatase 163 U/L (34-104) H 07/28/17 07:30 Ammonia 77 umol/L (16-53) H 07/28/17 07:30 Total Protein 7.1 gm/dL (6.0-8.3) 07/28/17 07:30 Albumin 2.4 gm/dL (3.7-5.3) L 07/28/17 07:30 Globulin 4.7 gm/dL 07/28/17 07:30 Albumin/Globulin Ratio 0.5 (1.0-1.8) L 07/28/17 07:30 TSH 2.28 uIU/ml (0.34-5.60) 07/27/17 04:35 Urine Source [place] 07/26/17 20:30 Urine Color YELLOW 07/26/17 20:30 Urine Clarity SLIGHTLY HAZY (CLEAR) 07/26/17 20:30 Urine pH 5.5 (4.6 - 8.0) 07/26/17 20:30 Ur Specific [place] 1.010 (1.005-1.030) 07/26/17 20:30 Urine Protein NEGATIVE mg/dL (NEGATIVE) 07/26/17 20:30 Urine Glucose (UA) NEGATIVE mg/dL (NEGATIVE) 07/26/17 20:30 Urine Ketones NEGATIVE mg/dL (NEGATIVE) 07/26/17 20:30 Urine Blood TRACE (NEGATIVE) 07/26/17 20:30 Urine Nitrate NEGATIVE (NEGATIVE) 07/26/17 20:30 Urine Bilirubin NEGATIVE (NEGATIVE) 07/26/17 20:30 Urine Urobilinogen 0.2 E.U./dL (0.2 - 1.0) 07/26/17 20:30 Ur Leukocyte Esterase TRACE (NEGATIVE) H 07/26/17 20:30 Urine RBC 2-5 /hpf (0-5) 07/26/17 20:30 Urine WBC 10-25 /hpf (0-5) H 07/26/17 20:30 Ur Epithelial Cells FEW /lpf (FEW) 07/26/17 20:30 Urine Bacteria 1+ /hpf (NONE SEEN) H 07/26/17 20:30 Vancomycin Trough 17.4 ug/mL (10-20) 07/28/17 07:30 Phenytoin 5.0 ug/ml (10.0-20.0) L 07/26/17 20:56 Valproic Acid 30.9 ug/mL (50.0-100.0) L 07/26/17 20:56 Carbamazepine 4.0 ug/ml (4.0-12.0) 07/26/17 20:56 - Physical Exam Vitals and I&O: Vital Signs Temp 101.9 F 07/28/17 04:00 Pulse 79 07/28/17 09:12 Resp 12 07/28/17 06:55 BP 156/59 07/28/17 08:45 Pulse Ox 100 07/28/17 07:00 Intake & Output 07/27/17 07/28/17 07/28/17 18:59 06:59 18:59 Intake Total 1645 1400 Output Total 850 900 Balance 795 500 Weight (lbs) 81.703 kg 81.76 kg Intake: Intake, IV Amount 1045 600 Piperacillin Sodium/ 50 100 Tazobact 3.375 gm In Sodium Chloride 0.9% 50 ml @ 100 mls/hr IV Q8HR [facility] Rx#:[id number] Sodium Chloride 0.9% 1, 495 000 ml @ 100 mls/hr IV . Q10H [facility] Rx#:[id number] Vancomycin HCl 1.5 gm In 500 500 Sodium Chloride 0.9% 500 ml @ 250 mls/hr IV Q12H [facility] Rx#:[id number] Tube Feeding 400 600 Other 200 200 Output: Urine 850 900 Other: # Bowel Movements 0 0 Active Medications: Current Medications Acetaminophen (Tylenol 650mg/20.3ml Suspension) 650 mg PO Q6H PRN PRN Reason: Fever > 101 Stop: 09/25/17 19:32 Last Admin: 07/28/17 04:02 Dose: 650 mg Acetaminophen (Tylenol 650mg/20.3ml Suspension) 650 mg GT BID [facility] Stop: 09/26/17 08:59 Last Admin: 07/28/17 09:11 Dose: 650 mg Acetaminophen/Hydrocodone Bitart ([place] 5mg/325mg) 1 tab GT Q4H PRN PRN Reason: Pain (Moderate) Stop: 09/25/17 19:35 Acetaminophen/Hydrocodone Bitart ([place] 10 Mg/325 Mg) 1 tab GT Q4H PRN PRN Reason: Pain (Severe) Stop: 09/25/17 19:36 Last Admin: 07/28/17 09:00 Dose: 1 tab Acetylcysteine (Mucomyst 20%) 5 ml HHN BIDRT [facility] Stop: 09/25/17 18:59 Last Admin: 07/28/17 06:52 Dose: 5 ml Albuterol/Ipratropium (Duoneb Neb) 3 ml HHN Q4HRT [facility] Stop: 09/25/17 14:59 Last Admin: 07/28/17 06:52 Dose: 3 ml Amlodipine Besylate (Norvasc) 10 mg GT DAILY [facility] Stop: 09/26/17 08:59 Last Admin: 07/28/17 08:45 Dose: 10 mg Ascorbic Acid (Vitamin C) 500 mg GT DAILY [facility] Stop: 09/26/17 08:59 Last Admin: 07/28/17 09:13 Dose: 500 mg Aspirin (Aspirin Chewable) 81 mg GT DAILY [facility] Stop: 09/26/17 08:59 Last Admin: 07/28/17 09:13 Dose: 81 mg Bisacodyl (Dulcolax 10 Mg Supp) 10 mg RC DAILY PRN PRN Reason: Constipation Stop: 09/25/17 20:37 Budesonide (Pulmicort) 0.5 mg HHN BIDRT [facility] Stop: 09/25/17 18:59 Last Admin: 07/28/17 06:52 Dose: 0.5 mg Chlorhexidine Gluconate (Peridex) 15 ml MM 0800,1999 [facility] Stop: 09/25/17 08:59 Last Admin: 07/28/17 08:05 Dose: 15 ml Piperacillin Sod/Tazobactam (Sod 3.375 gm/ Sodium Chloride) 50 mls @ 100 mls/ hr IV Q8HR [facility] Stop: 09/25/17 04:59 Last Infusion: 07/28/17 05:50 Dose: Infused Vancomycin HCl 1.5 gm/ Sodium (Chloride) 500 mls @ 250 mls/hr IV Q12H [facility] Stop: 09/25/17 08:59 Last Admin: 07/28/17 09:15 Dose: 250 mls/hr Sodium Chloride (Nacl 0.9%) 1,000 mls @ 40 mls/hr IV .Q24H [facility] Stop: 09/25/17 20:44 Last Admin: 07/28/17 02:57 Dose: 40 mls/hr Lorazepam (Ativan) 1 mg IVP Q6HR PRN; Protocol PRN Reason: AGITATION Stop: 09/26/17 01:09 Last Admin: 07/28/17 01:29 Dose: 1 mg Miscellaneous (Vancomycin Iv Per Pharmacy) 1 ea [facility] PRN PRN PRN Reason: PROTOCOL Stop: 09/25/17 00:28 - Procedures Procedures: Procedures Procedure Code Date RESPIRATORY VENTILATION, 24-96 CONSECUTIVE HOURS [id number] 07/26/17
[2017-07-28 09:31] LABS: pH 7.51 (7.35-7.45)
[2017-07-28 09:32] LABS: ALLEN TEST YES
--- NOTE | 2017-07-28 12:09 | Consultation ---
DATE OF CONSULTATION: 07/27/2017 PULMONARY AND CRITICAL CARE CONSULTATION NOTE REASON FOR CONSULTATION: Help the patient with respiratory failure. CONSULT NOTE: This is a 61-year-old female who basically has multiple problems; had a history of ankylosing spondylitis, history of seizure disorder, history of mechanical fall with C4-C5 fracture, following which she appears to be quadriparetic and had a tracheostomy done in about 12 days ago. Subsequently, the patient was not able to talk or speak and the patient was brought to intermediate facility around the family here and apparently, the patient has probably some abnormal lab tests, hence the patient was subsequently admitted for further care and necessary treatment. The patient would gesture ____ might follow simple command. Meaningful detailed history is very difficult to not available to me at this particular time except the patient being on a ventilator and has a G-tube, quadriparesis and status post ankylosing spondylitis as well as history of seizure disorder. No previous lung problems, etc. and has been on a vent since second week of June. PHYSICAL FINDINGS: GENERAL: This is an elderly looking female who is on a ventilator. No respiratory distress. VITAL SIGNS: The patient's recorded vitals; temperature is 98.4, blood pressure 138/50, saturation is in 90s on 40% of oxygen. HEENT: Examination of the head is essentially unremarkable. Pupils appear to be equal and reacting to light. Conjunctivae are slightly pallor. Oral cavity, limited exam for small oropharyngeal opening. NECK: Shows a neck collar. The patient is a tracheostomy through that. No palpable nodes in the neck could be palpated. CHEST: Findings shows diminished air entry with occasional secretory noise. HEART: Regular. ABDOMEN: Shows slightly distended with a G-tube. EXTREMITIES: Shows quite flaccid. No significant movement of any of the extremities. No peripheral cyanosis or clubbing. LABORATORY DATA: The patient's pertinent laboratory studies: Potassium earlier was 6.1, which has been corrected and also the patient's creatinine is 0.6. White count was 11.2, hemoglobin 8.1. Glucose is 136 and there is slight elevation of ALT as well as alkaline phosphatase. Albumin is 2.7. IMAGING STUDIES: The patient's chest x-ray showed some haziness in the right basal area. IMPRESSION: The patient has relatively acute respiratory failure secondary to the C4-C5 injury and underlying history of ankylosing spondylitis with seizure disorder, also history of vent since about 3-4 weeks on this patient. PLANS AND SUGGESTIONS: We will go ahead and get a baseline culture, aggressive inhalation treatment. We will go ahead and empirically put on antibiotic. I agree with piperacillin and vancomycin for now and continue bronchodilator therapy, inhaled steroids as well and see how she does and followup serial chest x-rays and blood gases and go from there. JOB# [id number]
[2017-07-28] MEDS ORDERED: HYDROmorphone 1 mg/mL 1mL Syr IVP PRN (12:28)
[2017-07-28] MEDS ORDERED: Probiotic Screen MC PRN (13:15)
[2017-07-28] MEDS: HYDROmorphone 1 mg/mL 1mL Syr IVP PRN ×2 (14:34→18:40)
--- NOTE | 2017-07-28 23:56 | Progress Notes ---
DATE: 07/28/2017 PROBLEM LIST: 1. Acute on chronic respiratory failure. 2. Electrolyte imbalance. 3. Atelectasis question pneumonitis on the right basal area. SYMPTOMS: Nil. Awake, no specific new communication could be done and currently is in a neck brace with tracheostomy. PHYSICAL EXAMINATION: VITAL SIGNS: The patient's recorded vitals temperature is 98.4, blood pressure 128/47, saturation is in mid 90s on 30% of oxygen on mechanical ventilation. NECK: Veins not visualized. CHEST: Shows diminished air entry at the bases, more so on the right than the left. HEART: Regular. ABDOMEN: Soft, slightly distended. LABORATORY DATA: ABG shows mild metabolic alkalosis with pO2 is 74 on tidal volume of 450 mL. ASSESSMENT: The patient is clinically stable, still atelectasis in the right basal area. PLANS AND SUGGESTIONS: We will continue ____ treatment. We will increase the tidal volume to see if it helps. Meantime, continue current other treatment, etc. Care and plan discussed with the patient's niece yesterday. JOB# [id number]
[2017-07-29] MEDS: Albuterol/Ipratropium Neb 3 ML AERS HHN SCH ×6 (03:54→23:10)
[2017-07-29 05:06] LABS: EOSINOPHILE ABSOLUTE 0.5 Th/cmm (0.1-0.4); LYMPHOCYTE ABSOLUTE 1.8 Th/cmm (1.5-3.0); MEAN PLATELET VOLUME 6.7 fl; WHITE BLOOD COUNT 10.6 Th/cmm (4.8-10.8)
[2017-07-29 05:13] LABS: ALB/GLOB RATIO 0.5 (1.0-1.8); ALBUMIN 2.3 gm/dL (3.7-5.3); ALKALINE PHOSPHATASE 147 U/L (34-104); ANION GAP 7.3 (7.0-16.0); BILIRUBIN,DIRECT 0.17 mg/dL (0.0-0.2); BILIRUBIN,TOTAL 0.5 mg/dL (0.3-1.0); BUN - UREA NITROGEN 15 mg/dL (7-25); CALCIUM SERUM 8.2 mg/dL (8.6-10.3); CARBON DIOXIDE 26.6 mEq/L (21.0-31.0); CHLORIDE 104 mEq/L (98-107); CREATININE - SERUM 0.3 mg/dL (0.6-1.2); GFR AFRICAN-AMERICAN > 60.0 ml/min (>90); GFR NON AFRICAN-AMERICAN > 60.0 ml/min; GLUCOSE 180 mg/dL (70-105); POTASSIUM SERUM 3.9 mEq/L (3.5-5.1); SGOT 33 U/L (13-39); SGPT/ALT 53 U/L (7-52); SODIUM SERUM 134 mEq/L (136-145); TOTAL PROTEIN,SERUM 6.9 gm/dL (6.0-8.3)
[2017-07-29 05:23] LABS: % BASOPHILS 0.1 % (0.0-2.0); % EOSINOPHILS 4.6 % (0.0-5.0); % LYMPHOCYTES 17.4 % (20.0-50.0); % MONOCYTES 9.7 % (2.0-10.0); % NEUTROPHILS 68.2 % (40.0-80.0); HEMATOCRIT 25.7 % (41.0-60); HEMOGLOBIN 8.4 gm/dL (12-16); MEAN CORPUSCULAR HGB CONC 32.6 pg (28.0-36.0); NEUTROPHILE ABSOLUTE 7.3 Th/cmm (1.8-8.0); PLATELET COUNT 364 Th/cmm (150-400); RED BLOOD COUNT 2.71 Mil/cmm (3.80-5.10); RED CELL DISTRIBUTION WIDTH 16.3 % (11.5-20.0)
--- NOTE | 2017-07-29 05:30 | Consultation ---
DATE OF CONSULTATION: 07/27/2017 HISTORY OF PRESENT ILLNESS: This is a 61-year-old female brought to the hospital with complaint of shortness of breath. The patient was found to have septic shock, was admitted to ICU. Infectious consultation was called. The patient is unable to provide meaningful history. Chart reviewed, pertinent information obtained from the staff. PAST MEDICAL HISTORY: Tracheostomy, back surgery, ankylosing spondylitis, epilepsy, quadriplegia. SOCIAL HISTORY: Nonsmoker. ALLERGIES: No allergies. REVIEW OF SYSTEMS: A 14-point review of system negative except above. PHYSICAL EXAMINATION: GENERAL: Bed-bound female. VITAL SIGNS: Temperature is 101.9, pulse 80, respirations 18, blood pressure 166/60. HEENT: Mild pallor, no icterus or plaque. NECK: Supple. LUNGS: Breath sounds bilateral, tracheostomy present. Quadriparesis. LYMPHATIC: No thyromegaly. Pulses present. [place]ORY [place]: [place] [address], hemoglobin 8.1, platelets 137. UA shows trace of leukocyte esterase positive. Blood gas is ordered. Chest x-ray reviewed shows infiltrate. DIAGNOSES: Septic shock, sepsis, pneumonia, urinary tract infection, quadriparesis, back surgeries, ankylosing spondylitis, epilepsy and tracheostomy. PLAN: The patient is started on vancomycin and Zosyn. Wait for the culture results, modify antibiotic accordingly. Rest of the care as ordered in [facility]. Thank you Dr. Mares for this consultation. JOB# [id number]
--- NOTE | 2017-07-29 05:30 | Consultation ---
DATE OF CONSULTATION: 07/27/2017 HISTORY OF PRESENT ILLNESS: This is a 61-year-old female brought to the hospital with complaint of shortness of breath. The patient was found to have septic shock, was admitted to ICU. Infectious consultation was called. The patient is unable to provide meaningful history. Chart reviewed, pertinent information obtained from the staff. PAST MEDICAL HISTORY: Tracheostomy, back surgery, ankylosing spondylitis, epilepsy, quadriplegia. SOCIAL HISTORY: Nonsmoker. ALLERGIES: No allergies. REVIEW OF SYSTEMS: A 14-point review of system negative except above. PHYSICAL EXAMINATION: GENERAL: Bed-bound female. VITAL SIGNS: Temperature is 101.9, pulse 80, respirations 18, blood pressure 166/60. HEENT: Mild pallor, no icterus or plaque. NECK: Supple. LUNGS: Breath sounds bilateral, tracheostomy present. Quadriparesis. LYMPHATIC: No thyromegaly. Pulses present. [place]: [place] [address], hemoglobin 8.1, platelets 137. UA shows trace of leukocyte esterase positive. Blood gas is ordered. Chest x-ray reviewed shows infiltrate. DIAGNOSES: Septic shock, sepsis, pneumonia, urinary tract infection, quadriparesis, back surgeries, ankylosing spondylitis, epilepsy and tracheostomy. PLAN: The patient is started on vancomycin and Zosyn. Wait for the culture results, modify antibiotic accordingly. Rest of the care as ordered in [facility]. Thank you Dr. Mares for this consultation. JOB# [id number]
--- NOTE | 2017-07-29 05:30 | Consultation ---
DATE OF CONSULTATION: 07/27/2017 HISTORY OF PRESENT ILLNESS: This is a 61-year-old female brought to the hospital with complaint of shortness of breath. The patient was found to have septic shock, was admitted to ICU. Infectious consultation was called. The patient is unable to provide meaningful history. Chart reviewed, pertinent information obtained from the staff. PAST MEDICAL HISTORY: Tracheostomy, back surgery, ankylosing spondylitis, epilepsy, quadriplegia. SOCIAL HISTORY: Nonsmoker. ALLERGIES: No allergies. REVIEW OF SYSTEMS: A 14-point review of system negative except above. PHYSICAL EXAMINATION: GENERAL: Bed-bound female. VITAL SIGNS: Temperature is 101.9, pulse 80, respirations 18, blood pressure 166/60. HEENT: Mild pallor, no icterus or plaque. NECK: Supple. LUNGS: Breath sounds bilateral, tracheostomy present. Quadriparesis. LYMPHATIC: No thyromegaly. Pulses present. [place]: [place] [address], hemoglobin 8.1, platelets 137. UA shows trace of leukocyte esterase positive. Blood gas is ordered. Chest x-ray reviewed shows infiltrate. DIAGNOSES: Septic shock, sepsis, pneumonia, urinary tract infection, quadriparesis, back surgeries, ankylosing spondylitis, epilepsy and tracheostomy. PLAN: The patient is started on vancomycin and Zosyn. Wait for the culture results, modify antibiotic accordingly. Rest of the care as ordered in [facility]. Thank you Dr. Mares for this consultation. JOB# [id number]
[2017-07-29] MEDS: HYDROmorphone 1 mg/mL 1mL Syr IVP PRN (05:38)
[2017-07-29 06:06] LABS: A1C % 5.8 % (4.0-6.0)
[2017-07-29] MEDS: Budesonide 0.5 Mg/2 mL Ud HHN SCH ×2 (07:50→19:12)
--- NOTE | 2017-07-29 08:11 | Diagnostic Imaging Report ---
CHEST X-RAY: AP view INDICATION: Shortness of breath COMPARISON: 07/28/2017 FINDINGS: Tracheostomy tube is stable. Small right effusion is seen with right basal infiltrates. Left midlung atelectatic changes are noted. Mild cardiomegaly is noted with atherosclerosis. IMPRESSION: Persistent small right effusion and right basal infiltrates. Cardiomegaly.
[2017-07-29] MEDS: Ascorbic Acid 500 mg/5 mL UDC GT SCH (09:00)
[2017-07-29] MEDS: Chlorhexidine Gluconate 0.12% 15mL Mouthwash MM SCH ×2 (09:00→20:50)
--- NOTE | 2017-07-29 09:18 | General Progress Note ---
Subjective - Review of Systems Events since last encounter: patient has neck brace with trach Objective - Results Result Diagrams: 07/29/17 04:39 07/29/17 04:39 Recent Labs: Laboratory Last Values WBC 10.6 Th/cmm (4.8-10.8) 07/29/17 04:39 RBC 2.71 Mil/cmm (3.80-5.10) L 07/29/17 04:39 Hgb 8.4 gm/dL (12-16) L 07/29/17 04:39 Hct 25.7 % (41.0-60) L 07/29/17 04:39 MCV 95.0 fl (81-100) 07/29/17 04:39 MCH 31.0 pg (27.0-31.0) 07/29/17 04:39 MCHC Differential 32.6 pg (28.0-36.0) 07/29/17 04:39 RDW 16.3 % (11.5-20.0) 07/29/17 04:39 Plt Count 364 Th/cmm (150-400) 07/29/17 04:39 MPV 6.7 fl 07/29/17 04:39 Neutrophils % 68.2 % (40.0-80.0) 07/29/17 04:39 Lymphocytes % 17.4 % (20.0-50.0) L 07/29/17 04:39 Monocytes % 9.7 % (2.0-10.0) 07/29/17 04:39 Eosinophils % 4.6 % (0.0-5.0) 07/29/17 04:39 Basophils % 0.1 % (0.0-2.0) 07/29/17 04:39 Specimen Source Arterial 07/28/17 09:25 Sample Site Right Radial 07/28/17 09:25 pH 7.51 (7.35-7.45) H 07/28/17 09:25 pCO2 38.0 mmHg (35.0-45.0) 07/28/17 09:25 pO2 74.0 mmHg (80.0-100.0) L 07/28/17 09:25 HCO3 30.3 mEq/L (20.0-26.0) H 07/28/17 09:25 Base Excess 6.9 mEq/L (-3.0-3.0) H 07/28/17 09:25 O2 Saturation 96.0 % (92.0-100.0) 07/28/17 09:25 Shahid Test YES 07/28/17 09:25 Vent Rate 12 07/28/17 09:25 Inspired O2 30 07/28/17 09:25 Tidal Volume 450 07/28/17 09:25 PEEP 5 07/28/17 09:25 Pressure (ins/psv/peep) NA 07/28/17 09:25 Critical Value E.BRAXTON 07/28/17 09:25 Sodium 134 mEq/L (136-145) L 07/29/17 04:39 Potassium 3.9 mEq/L (3.5-5.1) 07/29/17 04:39 Chloride 104 mEq/L (98-107) 07/29/17 04:39 Carbon Dioxide 26.6 mEq/L (21.0-31.0) 07/29/17 04:39 Anion Gap 7.3 (7.0-16.0) 07/29/17 04:39 BUN 15 mg/dL (7-25) 07/29/17 04:39 Creatinine 0.3 mg/dL (0.6-1.2) L 07/29/17 04:39 Est GFR ( Amer) > 60.0 ml/min (>90) 07/29/17 04:39 Est GFR (Non-Af Amer) > 60.0 ml/min 07/29/17 04:39 BUN/Creatinine Ratio 50.0 07/29/17 04:39 Glucose 180 mg/dL (70-105) H 07/29/17 04:39 Hemoglobin A1c % 5.8 % (4.0-6.0) 07/29/17 04:39 Whole Bld Lactic Acid 0.93 mmol/L (0.60-1.99) 07/27/17 04:35 Calcium 8.2 mg/dL (8.6-10.3) L 07/29/17 04:39 Total Bilirubin 0.5 mg/dL (0.3-1.0) 07/29/17 04:39 Direct Bilirubin 0.17 mg/dL (0.0-0.2) 07/29/17 04:39 AST 33 U/L (13-39) 07/29/17 04:39 ALT 53 U/L (7-52) H 07/29/17 04:39 Alkaline Phosphatase 147 U/L (34-104) H 07/29/17 04:39 Ammonia 77 umol/L (16-53) H 07/28/17 07:30 Total Protein 6.9 gm/dL (6.0-8.3) 07/29/17 04:39 Albumin 2.3 gm/dL (3.7-5.3) L 07/29/17 04:39 Globulin 4.6 gm/dL 07/29/17 04:39 Albumin/Globulin Ratio 0.5 (1.0-1.8) L 07/29/17 04:39 TSH 2.28 uIU/ml (0.34-5.60) 07/27/17 04:35 Urine Source [place] 07/26/17 20:30 Urine Color YELLOW 07/26/17 20:30 Urine Clarity SLIGHTLY HAZY (CLEAR) 07/26/17 20:30 Urine pH 5.5 (4.6 - 8.0) 07/26/17 20:30 Ur Specific [place] 1.010 (1.005-1.030) 07/26/17 20:30 Urine Protein NEGATIVE mg/dL (NEGATIVE) 07/26/17 20:30 Urine Glucose (UA) NEGATIVE mg/dL (NEGATIVE) 07/26/17 20:30 Urine Ketones NEGATIVE mg/dL (NEGATIVE) 07/26/17 20:30 Urine Blood TRACE (NEGATIVE) 07/26/17 20:30 Urine Nitrate NEGATIVE (NEGATIVE) 07/26/17 20:30 Urine Bilirubin NEGATIVE (NEGATIVE) 07/26/17 20:30 Urine Urobilinogen 0.2 E.U./dL (0.2 - 1.0) 07/26/17 20:30 Ur Leukocyte Esterase TRACE (NEGATIVE) H 07/26/17 20:30 Urine RBC 2-5 /hpf (0-5) 07/26/17 20:30 Urine WBC 10-25 /hpf (0-5) H 07/26/17 20:30 Ur Epithelial Cells FEW /lpf (FEW) 07/26/17 20:30 Urine Bacteria 1+ /hpf (NONE SEEN) H 07/26/17 20:30 Vancomycin Trough 17.4 ug/mL (10-20) 07/28/17 07:30 Phenytoin 5.0 ug/ml (10.0-20.0) L 07/26/17 20:56 Valproic Acid 30.9 ug/mL (50.0-100.0) L 07/26/17 20:56 Carbamazepine 4.0 ug/ml (4.0-12.0) 07/26/17 20:56 - Physical Exam Vitals and I&O: Vital Signs Temp 99.2 F 07/29/17 05:00 Pulse 74 07/29/17 08:19 Resp 18 07/29/17 08:40 BP 117/58 07/29/17 07:00 Pulse Ox 100 07/29/17 08:19 Intake & Output 07/28/17 07/29/17 07/29/17 18:59 06:59 18:59 Intake Total 1250 1868.667 Output Total 820 1200 Balance 430 668.667 Weight (lbs) 82.611 kg 82.611 kg Intake: Intake, IV Amount 550 1268.667 Piperacillin Sodium/ 50 50 Tazobact 3.375 gm In Sodium Chloride 0.9% 50 ml @ 100 mls/hr IV Q8HR [facility] Rx#:[id number] Sodium Chloride 0.9% 1, 718.667 000 ml @ 40 mls/hr IV . Q24H [facility] Rx#:[id number] Vancomycin HCl 1.5 gm In 500 500 Sodium Chloride 0.9% 500 ml @ 250 mls/hr IV Q12H [facility] Rx#:[id number] Tube Feeding 400 600 Other 300 Output: Urine 820 1200 Other: # Bowel Movements 0 0 Active Medications: Current Medications Acetaminophen (Tylenol 650mg/20.3ml Suspension) 650 mg PO Q6H PRN PRN Reason: Fever > 101 Stop: 09/25/17 19:32 Last Admin: 07/28/17 22:43 Dose: 650 mg Acetaminophen (Tylenol 650mg/20.3ml Suspension) 650 mg GT BID [facility] Stop: 09/26/17 08:59 Last Admin: 07/28/17 16:32 Dose: 650 mg Acetaminophen/Hydrocodone Bitart ([place] 5mg/325mg) 1 tab GT Q4H PRN PRN Reason: Pain (Moderate) Stop: 09/25/17 19:35 Acetaminophen/Hydrocodone Bitart ([place] 10 Mg/325 Mg) 1 tab GT Q4H PRN PRN Reason: Pain (Severe) Stop: 09/25/17 19:36 Last Admin: 07/28/17 09:00 Dose: 1 tab Acetylcysteine (Mucomyst 20%) 5 ml HHN BIDRT [facility] Stop: 09/25/17 18:59 Last Admin: 07/29/17 07:50 Dose: 5 ml Albuterol/Ipratropium (Duoneb Neb) 3 ml HHN Q4HRT [facility] Stop: 09/25/17 14:59 Last Admin: 07/29/17 07:50 Dose: 3 ml Amlodipine Besylate (Norvasc) 10 mg GT DAILY [facility] Stop: 09/26/17 08:59 Last Admin: 07/28/17 08:45 Dose: 10 mg Ascorbic Acid (Vitamin C) 500 mg GT DAILY [facility] Stop: 09/26/17 08:59 Last Admin: 07/28/17 09:13 Dose: 500 mg Aspirin (Aspirin Chewable) 81 mg GT DAILY [facility] Stop: 09/26/17 08:59 Last Admin: 07/28/17 09:13 Dose: 81 mg Bisacodyl (Dulcolax 10 Mg Supp) 10 mg RC DAILY PRN PRN Reason: Constipation Stop: 09/25/17 20:37 Budesonide (Pulmicort) 0.5 mg HHN BIDRT [facility] Stop: 09/25/17 18:59 Last Admin: 07/29/17 07:50 Dose: 0.5 mg Chlorhexidine Gluconate (Peridex) 15 ml MM 0800,2000 [facility] Stop: 09/25/17 08:59 Last Admin: 07/28/17 20:49 Dose: 15 ml Hydromorphone HCl (Dilaudid) 1 mg IVP Q4HR PRN PRN Reason: Pain (Moderate-Severe) Stop: 09/26/17 12:24 Last Admin: 07/29/17 05:38 Dose: 1 mg Piperacillin Sod/Tazobactam (Sod 3.375 gm/ Sodium Chloride) 50 mls @ 100 mls/ hr IV Q8HR [facility] Stop: 09/25/17 04:59 Last Admin: 07/29/17 05:38 Dose: 100 mls/hr Vancomycin HCl 1.5 gm/ Sodium (Chloride) 500 mls @ 250 mls/hr IV Q12H [facility] Stop: 09/25/17 08:59 Last Infusion: 07/28/17 22:50 Dose: Infused Sodium Chloride (Nacl 0.9%) 1,000 mls @ 40 mls/hr IV .Q24H [facility] Stop: 09/25/17 20:44 Last Admin: 07/28/17 20:55 Dose: 40 mls/hr Lactobacillus Rhamnosus (Culturelle) 1 each PO DAILY [facility] Stop: 09/27/17 08:59 Lorazepam (Ativan) 1 mg IVP Q6HR PRN; Protocol PRN Reason: AGITATION Stop: 09/26/17 01:09 Last Admin: 07/28/17 22:51 Dose: 1 mg Miscellaneous (Vancomycin Iv Per Pharmacy) 1 [facility] PRN PRN PRN Reason: PROTOCOL Stop: 09/25/17 00:28 Miscellaneous (Probiotic Screen) 1 [facility] PRN PRN PRN Reason: PROTOCOL Stop: 09/26/17 13:14 Pantoprazole Sodium (Protonix) 40 mg IVP DAILY [facility] Stop: 09/26/17 12:59 Last Admin: 07/28/17 13:55 Dose: 40 mg - Procedures Procedures: Procedures Procedure Code Date RESPIRATORY VENTILATION, 24-96 CONSECUTIVE HOURS [id number] 07/26/17 Nutritional Asmnt/Malnutr-PDOC - Dietary Evaluation Malnutrition Findings (Please click <Entered> for more info): Nutritional Asmnt/Malnutrition Start: 07/27/17 07: 32 Text: Status: Complete Freq: Document 07/28/17 10:29 [email or web address] (Rec: 07/28/17 11:23 LCHENG [email or web address]) Nutritional Asmnt/Malnutrition Patient General Information Nutritional Screening High Risk Screening Diagnosis Pneumonia, Sepsis Pertinent Medical Hx/Surgical Hx S/P spinal fracture surgery Subjective Information Pt was admited for abnormal lab values, dx of pneumonia and sepsis. Pt is visited this morning, awake and alert, not able to talk on vent. Tube feeding is currently not running at this time. RN states pt is tolerating tube feeding well, no residual. No pain at this time. Current Diet Order/ Nutrition Support Peptamen 1.2, 55ml x 20hr from 12pm-8am, providing 1200kcal, 76g pro Patient / S.O Not Indicated Pertinent Medications Vitamin C, Vancomycin, Piperacilin, Sodium IV 40ml/hr Pertinent Labs 07/28: Na 137, K 4.1 (6.1 on ), Cl 104, BUN 22, Cr 0.4L, GLU 135H, Alb 2.4 L, Ca 8.3L, AST 43H, ALT 56H, Ammonia 77H Nutritional Hx/Data Height 1.63 m Height (Calculated Centimeters) 162.6 Current Weight (lbs) 81.76 kg Weight (Calculated Kilograms) 81.8 Weight (Calculated Grams) 06343.0 [place] Body Weight 120 % [place] Body Weight 150 Weight Status Obese GI Symptoms GI Symptoms None Food Allergies No Skin Integrity/Comment: Extremities edema: non-pitting 2+ Estimated Nutritional Goals BEE in Kcals: Adj wt of IBW Calories/Kcals/Kg 25-30 Kcals Calculated 4801-5573 Protein: Adj wt of IBW Protein g/k.2-1.5 Protein Calculated 74-92 Fluid: ml 1535-1842ml (1ml/kcal) Nutritional Problem 1. Problem Problem Increased nutrition needs ( calorie and protein) Etiology increased needs for recovery Signs/Symptoms: dx of pneumonia and sepsis Malnutrition Alert Protein-Calorie Malnutrition N/A Is there a minimum of two criteria No selected? Query Text:Check all the applicable criteria. A minimum of two criteria are recommended for diagnosis of either severe or non-severe malnutrition. Intervention/Recommendation Recommendations by RD Increase Calorie Intake Comments 1. current nutrition support provides 1200kcal, 74g protein , which meets 78% of calorie needs and 100% of protein needs 2. recommend increase tube feeding rate to 60ml/hr x 20hr to provide 1440kcal, 91g pro, meeting 94% of calorie needs and 1005 of protein needs. 3. monitor tube feeding rate, residual and tolerance. Expected Outcomes/Goals Expected Outcomes/Goals 1. Pt will receive 100% of nutrition needs via nutrition support, and tolerate goal rate. 2. Edema will improve 3. Pt may slightly gained wt due to edema. Monitor wt daily , wt will remain admission wt 4. Monitor labs, lab values to approach WNL 5. Skin stability
--- NOTE | 2017-07-29 09:18 | General Progress Note ---
Subjective - Review of Systems Events since last encounter: patient has neck brace with trach Objective - Results Result Diagrams: 07/29/17 04:39 07/29/17 04:39 Recent Labs: Laboratory Last Values WBC 10.6 Th/cmm (4.8-10.8) 07/29/17 04:39 RBC 2.71 Mil/cmm (3.80-5.10) L 07/29/17 04:39 Hgb 8.4 gm/dL (12-16) L 07/29/17 04:39 Hct 25.7 % (41.0-60) L 07/29/17 04:39 MCV 95.0 fl (81-100) 07/29/17 04:39 MCH 31.0 pg (27.0-31.0) 07/29/17 04:39 MCHC Differential 32.6 pg (28.0-36.0) 07/29/17 04:39 RDW 16.3 % (11.5-20.0) 07/29/17 04:39 Plt Count 364 Th/cmm (150-400) 07/29/17 04:39 MPV 6.7 fl 07/29/17 04:39 Neutrophils % 68.2 % (40.0-80.0) 07/29/17 04:39 Lymphocytes % 17.4 % (20.0-50.0) L 07/29/17 04:39 Monocytes % 9.7 % (2.0-10.0) 07/29/17 04:39 Eosinophils % 4.6 % (0.0-5.0) 07/29/17 04:39 Basophils % 0.1 % (0.0-2.0) 07/29/17 04:39 Specimen Source Arterial 07/28/17 09:25 Sample Site Right Radial 07/28/17 09:25 pH 7.51 (7.35-7.45) H 07/28/17 09:25 pCO2 38.0 mmHg (35.0-45.0) 07/28/17 09:25 pO2 74.0 mmHg (80.0-100.0) L 07/28/17 09:25 HCO3 30.3 mEq/L (20.0-26.0) H 07/28/17 09:25 Base Excess 6.9 mEq/L (-3.0-3.0) H 07/28/17 09:25 O2 Saturation 96.0 % (92.0-100.0) 07/28/17 09:25 Shahid Test YES 07/28/17 09:25 Vent Rate 12 07/28/17 09:25 Inspired O2 30 07/28/17 09:25 Tidal Volume 450 07/28/17 09:25 PEEP 5 07/28/17 09:25 Pressure (ins/psv/peep) NA 07/28/17 09:25 Critical Value E.BRAXTON 07/28/17 09:25 Sodium 134 mEq/L (136-145) L 07/29/17 04:39 Potassium 3.9 mEq/L (3.5-5.1) 07/29/17 04:39 Chloride 104 mEq/L (98-107) 07/29/17 04:39 Carbon Dioxide 26.6 mEq/L (21.0-31.0) 07/29/17 04:39 Anion Gap 7.3 (7.0-16.0) 07/29/17 04:39 BUN 15 mg/dL (7-25) 07/29/17 04:39 Creatinine 0.3 mg/dL (0.6-1.2) L 07/29/17 04:39 Est GFR ( Amer) > 60.0 ml/min (>90) 07/29/17 04:39 Est GFR (Non-Af Amer) > 60.0 ml/min 07/29/17 04:39 BUN/Creatinine Ratio 50.0 07/29/17 04:39 Glucose 180 mg/dL (70-105) H 07/29/17 04:39 Hemoglobin A1c % 5.8 % (4.0-6.0) 07/29/17 04:39 Whole Bld Lactic Acid 0.93 mmol/L (0.60-1.99) 07/27/17 04:35 Calcium 8.2 mg/dL (8.6-10.3) L 07/29/17 04:39 Total Bilirubin 0.5 mg/dL (0.3-1.0) 07/29/17 04:39 Direct Bilirubin 0.17 mg/dL (0.0-0.2) 07/29/17 04:39 AST 33 U/L (13-39) 07/29/17 04:39 ALT 53 U/L (7-52) H 07/29/17 04:39 Alkaline Phosphatase 147 U/L (34-104) H 07/29/17 04:39 Ammonia 77 umol/L (16-53) H 07/28/17 07:30 Total Protein 6.9 gm/dL (6.0-8.3) 07/29/17 04:39 Albumin 2.3 gm/dL (3.7-5.3) L 07/29/17 04:39 Globulin 4.6 gm/dL 07/29/17 04:39 Albumin/Globulin Ratio 0.5 (1.0-1.8) L 07/29/17 04:39 TSH 2.28 uIU/ml (0.34-5.60) 07/27/17 04:35 Urine Source [place] 07/26/17 20:30 Urine Color YELLOW 07/26/17 20:30 Urine Clarity SLIGHTLY HAZY (CLEAR) 07/26/17 20:30 Urine pH 5.5 (4.6 - 8.0) 07/26/17 20:30 Ur Specific [place] 1.010 (1.005-1.030) 07/26/17 20:30 Urine Protein NEGATIVE mg/dL (NEGATIVE) 07/26/17 20:30 Urine Glucose (UA) NEGATIVE mg/dL (NEGATIVE) 07/26/17 20:30 Urine Ketones NEGATIVE mg/dL (NEGATIVE) 07/26/17 20:30 Urine Blood TRACE (NEGATIVE) 07/26/17 20:30 Urine Nitrate NEGATIVE (NEGATIVE) 07/26/17 20:30 Urine Bilirubin NEGATIVE (NEGATIVE) 07/26/17 20:30 Urine Urobilinogen 0.2 E.U./dL (0.2 - 1.0) 07/26/17 20:30 Ur Leukocyte Esterase TRACE (NEGATIVE) H 07/26/17 20:30 Urine RBC 2-5 /hpf (0-5) 07/26/17 20:30 Urine WBC 10-25 /hpf (0-5) H 07/26/17 20:30 Ur Epithelial Cells FEW /lpf (FEW) 07/26/17 20:30 Urine Bacteria 1+ /hpf (NONE SEEN) H 07/26/17 20:30 Vancomycin Trough 17.4 ug/mL (10-20) 07/28/17 07:30 Phenytoin 5.0 ug/ml (10.0-20.0) L 07/26/17 20:56 Valproic Acid 30.9 ug/mL (50.0-100.0) L 07/26/17 20:56 Carbamazepine 4.0 ug/ml (4.0-12.0) 07/26/17 20:56 - Physical Exam Vitals and I&O: Vital Signs Temp 99.2 F 07/29/17 05:00 Pulse 74 07/29/17 08:19 Resp 18 07/29/17 08:40 BP 117/58 07/29/17 07:00 Pulse Ox 100 07/29/17 08:19 Intake & Output 07/28/17 07/29/17 07/29/17 18:59 06:59 18:59 Intake Total 1250 1868.667 Output Total 820 1200 Balance 430 668.667 Weight (lbs) 82.611 kg 82.611 kg Intake: Intake, IV Amount 550 1268.667 Piperacillin Sodium/ 50 50 Tazobact 3.375 gm In Sodium Chloride 0.9% 50 ml @ 100 mls/hr IV Q8HR [facility] Rx#:[id number] Sodium Chloride 0.9% 1, 718.667 000 ml @ 40 mls/hr IV . Q24H [facility] Rx#:[id number] Vancomycin HCl 1.5 gm In 500 500 Sodium Chloride 0.9% 500 ml @ 250 mls/hr IV Q12H [facility] Rx#:[id number] Tube Feeding 400 600 Other 300 Output: Urine 820 1200 Other: # Bowel Movements 0 0 Active Medications: Current Medications Acetaminophen (Tylenol 650mg/20.3ml Suspension) 650 mg PO Q6H PRN PRN Reason: Fever > 101 Stop: 09/25/17 19:32 Last Admin: 07/28/17 22:43 Dose: 650 mg Acetaminophen (Tylenol 650mg/20.3ml Suspension) 650 mg GT BID [facility] Stop: 09/26/17 08:59 Last Admin: 07/28/17 16:32 Dose: 650 mg Acetaminophen/Hydrocodone Bitart ([place] 5mg/325mg) 1 tab GT Q4H PRN PRN Reason: Pain (Moderate) Stop: 09/25/17 19:35 Acetaminophen/Hydrocodone Bitart ([place] 10 Mg/325 Mg) 1 tab GT Q4H PRN PRN Reason: Pain (Severe) Stop: 09/25/17 19:36 Last Admin: 07/28/17 09:00 Dose: 1 tab Acetylcysteine (Mucomyst 20%) 5 ml HHN BIDRT [facility] Stop: 09/25/17 18:59 Last Admin: 07/29/17 07:50 Dose: 5 ml Albuterol/Ipratropium (Duoneb Neb) 3 ml HHN Q4HRT [facility] Stop: 09/25/17 14:59 Last Admin: 07/29/17 07:50 Dose: 3 ml Amlodipine Besylate (Norvasc) 10 mg GT DAILY [facility] Stop: 09/26/17 08:59 Last Admin: 07/28/17 08:45 Dose: 10 mg Ascorbic Acid (Vitamin C) 500 mg GT DAILY [facility] Stop: 09/26/17 08:59 Last Admin: 07/28/17 09:13 Dose: 500 mg Aspirin (Aspirin Chewable) 81 mg GT DAILY [facility] Stop: 09/26/17 08:59 Last Admin: 07/28/17 09:13 Dose: 81 mg Bisacodyl (Dulcolax 10 Mg Supp) 10 mg RC DAILY PRN PRN Reason: Constipation Stop: 09/25/17 20:37 Budesonide (Pulmicort) 0.5 mg HHN BIDRT [facility] Stop: 09/25/17 18:59 Last Admin: 07/29/17 07:50 Dose: 0.5 mg Chlorhexidine Gluconate (Peridex) 15 ml MM 0800,2000 [facility] Stop: 09/25/17 08:59 Last Admin: 07/28/17 20:49 Dose: 15 ml Hydromorphone HCl (Dilaudid) 1 mg IVP Q4HR PRN PRN Reason: Pain (Moderate-Severe) Stop: 09/26/17 12:24 Last Admin: 07/29/17 05:38 Dose: 1 mg Piperacillin Sod/Tazobactam (Sod 3.375 gm/ Sodium Chloride) 50 mls @ 100 mls/ hr IV Q8HR [facility] Stop: 09/25/17 04:59 Last Admin: 07/29/17 05:38 Dose: 100 mls/hr Vancomycin HCl 1.5 gm/ Sodium (Chloride) 500 mls @ 250 mls/hr IV Q12H [facility] Stop: 09/25/17 08:59 Last Infusion: 07/28/17 22:50 Dose: Infused Sodium Chloride (Nacl 0.9%) 1,000 mls @ 40 mls/hr IV .Q24H [facility] Stop: 09/25/17 20:44 Last Admin: 07/28/17 20:55 Dose: 40 mls/hr Lactobacillus Rhamnosus (Culturelle) 1 each PO DAILY [facility] Stop: 09/27/17 08:59 Lorazepam (Ativan) 1 mg IVP Q6HR PRN; Protocol PRN Reason: AGITATION Stop: 09/26/17 01:09 Last Admin: 07/28/17 22:51 Dose: 1 mg Miscellaneous (Vancomycin Iv Per Pharmacy) 1 [facility] PRN PRN PRN Reason: PROTOCOL Stop: 09/25/17 00:28 Miscellaneous (Probiotic Screen) 1 [facility] PRN PRN PRN Reason: PROTOCOL Stop: 09/26/17 13:14 Pantoprazole Sodium (Protonix) 40 mg IVP DAILY [facility] Stop: 09/26/17 12:59 Last Admin: 07/28/17 13:55 Dose: 40 mg - Procedures Procedures: Procedures Procedure Code Date RESPIRATORY VENTILATION, 24-96 CONSECUTIVE HOURS [id number] 07/26/17 Nutritional Asmnt/Malnutr-PDOC - Dietary Evaluation Malnutrition Findings (Please click <Entered> for more info): Nutritional Asmnt/Malnutrition Start: 07/27/17 07: 32 Text: Status: Complete Freq: Document 07/28/17 10:29 LCTOMYG (Rec: 07/28/17 11:23 LCHENG [email or web address]) Nutritional Asmnt/Malnutrition Patient General Information Nutritional Screening High Risk Screening Diagnosis Pneumonia, Sepsis Pertinent Medical Hx/Surgical Hx S/P spinal fracture surgery Subjective Information Pt was admited for abnormal lab values, dx of pneumonia and sepsis. Pt is visited this morning, awake and alert, not able to talk on vent. Tube feeding is currently not running at this time. RN states pt is tolerating tube feeding well, no residual. No pain at this time. Current Diet Order/ Nutrition Support Peptamen 1.2, 55ml x 20hr from 12pm-8am, providing 1200kcal, 76g pro Patient / S.O Not Indicated Pertinent Medications Vitamin C, Vancomycin, Piperacilin, Sodium IV 40ml/hr Pertinent Labs 07/28: Na 137, K 4.1 (6.1 on ), Cl 104, BUN 22, Cr 0.4L, GLU 135H, Alb 2.4 L, Ca 8.3L, AST 43H, ALT 56H, Ammonia 77H Nutritional Hx/Data Height 1.63 m Height (Calculated Centimeters) 162.6 Current Weight (lbs) 81.76 kg Weight (Calculated Kilograms) 81.8 Weight (Calculated Grams) 86300.0 [place] Body Weight 120 % [place] Body Weight 150 Weight Status Obese GI Symptoms GI Symptoms None Food Allergies No Skin Integrity/Comment: Extremities edema: non-pitting 2+ Estimated Nutritional Goals BEE in Kcals: Adj wt of IBW Calories/Kcals/Kg 25-30 Kcals Calculated 4489-2610 Protein: Adj wt of IBW Protein g/k.2-1.5 Protein Calculated 74-92 Fluid: ml 1535-1842ml (1ml/kcal) Nutritional Problem 1. Problem Problem Increased nutrition needs ( calorie and protein) Etiology increased needs for recovery Signs/Symptoms: dx of pneumonia and sepsis Malnutrition Alert Protein-Calorie Malnutrition N/A Is there a minimum of two criteria No selected? Query Text:Check all the applicable criteria. A minimum of two criteria are recommended for diagnosis of either severe or non-severe malnutrition. Intervention/Recommendation Recommendations by RD Increase Calorie Intake Comments 1. current nutrition support provides 1200kcal, 74g protein , which meets 78% of calorie needs and 100% of protein needs 2. recommend increase tube feeding rate to 60ml/hr x 20hr to provide 1440kcal, 91g pro, meeting 94% of calorie needs and 1005 of protein needs. 3. monitor tube feeding rate, residual and tolerance. Expected Outcomes/Goals Expected Outcomes/Goals 1. Pt will receive 100% of nutrition needs via nutrition support, and tolerate goal rate. 2. Edema will improve 3. Pt may slightly gained wt due to edema. Monitor wt daily , wt will remain admission wt 4. Monitor labs, lab values to approach WNL 5. Skin stability
--- NOTE | 2017-07-29 09:18 | General Progress Note ---
Subjective - Review of Systems Events since last encounter: patient has neck brace with trach Objective - Results Result Diagrams: 07/29/17 04:39 07/29/17 04:39 Recent Labs: Laboratory Last Values WBC 10.6 Th/cmm (4.8-10.8) 07/29/17 04:39 RBC 2.71 Mil/cmm (3.80-5.10) L 07/29/17 04:39 Hgb 8.4 gm/dL (12-16) L 07/29/17 04:39 Hct 25.7 % (41.0-60) L 07/29/17 04:39 MCV 95.0 fl (81-100) 07/29/17 04:39 MCH 31.0 pg (27.0-31.0) 07/29/17 04:39 MCHC Differential 32.6 pg (28.0-36.0) 07/29/17 04:39 RDW 16.3 % (11.5-20.0) 07/29/17 04:39 Plt Count 364 Th/cmm (150-400) 07/29/17 04:39 MPV 6.7 fl 07/29/17 04:39 Neutrophils % 68.2 % (40.0-80.0) 07/29/17 04:39 Lymphocytes % 17.4 % (20.0-50.0) L 07/29/17 04:39 Monocytes % 9.7 % (2.0-10.0) 07/29/17 04:39 Eosinophils % 4.6 % (0.0-5.0) 07/29/17 04:39 Basophils % 0.1 % (0.0-2.0) 07/29/17 04:39 Specimen Source Arterial 07/28/17 09:25 Sample Site Right Radial 07/28/17 09:25 pH 7.51 (7.35-7.45) H 07/28/17 09:25 pCO2 38.0 mmHg (35.0-45.0) 07/28/17 09:25 pO2 74.0 mmHg (80.0-100.0) L 07/28/17 09:25 HCO3 30.3 mEq/L (20.0-26.0) H 07/28/17 09:25 Base Excess 6.9 mEq/L (-3.0-3.0) H 07/28/17 09:25 O2 Saturation 96.0 % (92.0-100.0) 07/28/17 09:25 Shahid Test YES 07/28/17 09:25 Vent Rate 12 07/28/17 09:25 Inspired O2 30 07/28/17 09:25 Tidal Volume 450 07/28/17 09:25 PEEP 5 07/28/17 09:25 Pressure (ins/psv/peep) NA 07/28/17 09:25 Critical Value E.BRAXTON 07/28/17 09:25 Sodium 134 mEq/L (136-145) L 07/29/17 04:39 Potassium 3.9 mEq/L (3.5-5.1) 07/29/17 04:39 Chloride 104 mEq/L (98-107) 07/29/17 04:39 Carbon Dioxide 26.6 mEq/L (21.0-31.0) 07/29/17 04:39 Anion Gap 7.3 (7.0-16.0) 07/29/17 04:39 BUN 15 mg/dL (7-25) 07/29/17 04:39 Creatinine 0.3 mg/dL (0.6-1.2) L 07/29/17 04:39 Est GFR ( Amer) > 60.0 ml/min (>90) 07/29/17 04:39 Est GFR (Non-Af Amer) > 60.0 ml/min 07/29/17 04:39 BUN/Creatinine Ratio 50.0 07/29/17 04:39 Glucose 180 mg/dL (70-105) H 07/29/17 04:39 Hemoglobin A1c % 5.8 % (4.0-6.0) 07/29/17 04:39 Whole Bld Lactic Acid 0.93 mmol/L (0.60-1.99) 07/27/17 04:35 Calcium 8.2 mg/dL (8.6-10.3) L 07/29/17 04:39 Total Bilirubin 0.5 mg/dL (0.3-1.0) 07/29/17 04:39 Direct Bilirubin 0.17 mg/dL (0.0-0.2) 07/29/17 04:39 AST 33 U/L (13-39) 07/29/17 04:39 ALT 53 U/L (7-52) H 07/29/17 04:39 Alkaline Phosphatase 147 U/L (34-104) H 07/29/17 04:39 Ammonia 77 umol/L (16-53) H 07/28/17 07:30 Total Protein 6.9 gm/dL (6.0-8.3) 07/29/17 04:39 Albumin 2.3 gm/dL (3.7-5.3) L 07/29/17 04:39 Globulin 4.6 gm/dL 07/29/17 04:39 Albumin/Globulin Ratio 0.5 (1.0-1.8) L 07/29/17 04:39 TSH 2.28 uIU/ml (0.34-5.60) 07/27/17 04:35 Urine Source [place] 07/26/17 20:30 Urine Color YELLOW 07/26/17 20:30 Urine Clarity SLIGHTLY HAZY (CLEAR) 07/26/17 20:30 Urine pH 5.5 (4.6 - 8.0) 07/26/17 20:30 Ur Specific [place] 1.010 (1.005-1.030) 07/26/17 20:30 Urine Protein NEGATIVE mg/dL (NEGATIVE) 07/26/17 20:30 Urine Glucose (UA) NEGATIVE mg/dL (NEGATIVE) 07/26/17 20:30 Urine Ketones NEGATIVE mg/dL (NEGATIVE) 07/26/17 20:30 Urine Blood TRACE (NEGATIVE) 07/26/17 20:30 Urine Nitrate NEGATIVE (NEGATIVE) 07/26/17 20:30 Urine Bilirubin NEGATIVE (NEGATIVE) 07/26/17 20:30 Urine Urobilinogen 0.2 E.U./dL (0.2 - 1.0) 07/26/17 20:30 Ur Leukocyte Esterase TRACE (NEGATIVE) H 07/26/17 20:30 Urine RBC 2-5 /hpf (0-5) 07/26/17 20:30 Urine WBC 10-25 /hpf (0-5) H 07/26/17 20:30 Ur Epithelial Cells FEW /lpf (FEW) 07/26/17 20:30 Urine Bacteria 1+ /hpf (NONE SEEN) H 07/26/17 20:30 Vancomycin Trough 17.4 ug/mL (10-20) 07/28/17 07:30 Phenytoin 5.0 ug/ml (10.0-20.0) L 07/26/17 20:56 Valproic Acid 30.9 ug/mL (50.0-100.0) L 07/26/17 20:56 Carbamazepine 4.0 ug/ml (4.0-12.0) 07/26/17 20:56 - Physical Exam Vitals and I&O: Vital Signs Temp 99.2 F 07/29/17 05:00 Pulse 74 07/29/17 08:19 Resp 18 07/29/17 08:40 BP 117/58 07/29/17 07:00 Pulse Ox 100 07/29/17 08:19 Intake & Output 07/28/17 07/29/17 07/29/17 18:59 06:59 18:59 Intake Total 1250 1868.667 Output Total 820 1200 Balance 430 668.667 Weight (lbs) 82.611 kg 82.611 kg Intake: Intake, IV Amount 550 1268.667 Piperacillin Sodium/ 50 50 Tazobact 3.375 gm In Sodium Chloride 0.9% 50 ml @ 100 mls/hr IV Q8HR [facility] Rx#:[id number] Sodium Chloride 0.9% 1, 718.667 000 ml @ 40 mls/hr IV . Q24H [facility] Rx#:[id number] Vancomycin HCl 1.5 gm In 500 500 Sodium Chloride 0.9% 500 ml @ 250 mls/hr IV Q12H [facility] Rx#:[id number] Tube Feeding 400 600 Other 300 Output: Urine 820 1200 Other: # Bowel Movements 0 0 Active Medications: Current Medications Acetaminophen (Tylenol 650mg/20.3ml Suspension) 650 mg PO Q6H PRN PRN Reason: Fever > 101 Stop: 09/25/17 19:32 Last Admin: 07/28/17 22:43 Dose: 650 mg Acetaminophen (Tylenol 650mg/20.3ml Suspension) 650 mg GT BID [facility] Stop: 09/26/17 08:59 Last Admin: 07/28/17 16:32 Dose: 650 mg Acetaminophen/Hydrocodone Bitart ([place] 5mg/325mg) 1 tab GT Q4H PRN PRN Reason: Pain (Moderate) Stop: 09/25/17 19:35 Acetaminophen/Hydrocodone Bitart ([place] 10 Mg/325 Mg) 1 tab GT Q4H PRN PRN Reason: Pain (Severe) Stop: 09/25/17 19:36 Last Admin: 07/28/17 09:00 Dose: 1 tab Acetylcysteine (Mucomyst 20%) 5 ml HHN BIDRT [facility] Stop: 09/25/17 18:59 Last Admin: 07/29/17 07:50 Dose: 5 ml Albuterol/Ipratropium (Duoneb Neb) 3 ml HHN Q4HRT [facility] Stop: 09/25/17 14:59 Last Admin: 07/29/17 07:50 Dose: 3 ml Amlodipine Besylate (Norvasc) 10 mg GT DAILY [facility] Stop: 09/26/17 08:59 Last Admin: 07/28/17 08:45 Dose: 10 mg Ascorbic Acid (Vitamin C) 500 mg GT DAILY [facility] Stop: 09/26/17 08:59 Last Admin: 07/28/17 09:13 Dose: 500 mg Aspirin (Aspirin Chewable) 81 mg GT DAILY [facility] Stop: 09/26/17 08:59 Last Admin: 07/28/17 09:13 Dose: 81 mg Bisacodyl (Dulcolax 10 Mg Supp) 10 mg RC DAILY PRN PRN Reason: Constipation Stop: 09/25/17 20:37 Budesonide (Pulmicort) 0.5 mg HHN BIDRT [facility] Stop: 09/25/17 18:59 Last Admin: 07/29/17 07:50 Dose: 0.5 mg Chlorhexidine Gluconate (Peridex) 15 ml MM 0800,2000 [facility] Stop: 09/25/17 08:59 Last Admin: 07/28/17 20:49 Dose: 15 ml Hydromorphone HCl (Dilaudid) 1 mg IVP Q4HR PRN PRN Reason: Pain (Moderate-Severe) Stop: 09/26/17 12:24 Last Admin: 07/29/17 05:38 Dose: 1 mg Piperacillin Sod/Tazobactam (Sod 3.375 gm/ Sodium Chloride) 50 mls @ 100 mls/ hr IV Q8HR [facility] Stop: 09/25/17 04:59 Last Admin: 07/29/17 05:38 Dose: 100 mls/hr Vancomycin HCl 1.5 gm/ Sodium (Chloride) 500 mls @ 250 mls/hr IV Q12H [facility] Stop: 09/25/17 08:59 Last Infusion: 07/28/17 22:50 Dose: Infused Sodium Chloride (Nacl 0.9%) 1,000 mls @ 40 mls/hr IV .Q24H [facility] Stop: 09/25/17 20:44 Last Admin: 07/28/17 20:55 Dose: 40 mls/hr Lactobacillus Rhamnosus (Culturelle) 1 each PO DAILY [facility] Stop: 09/27/17 08:59 Lorazepam (Ativan) 1 mg IVP Q6HR PRN; Protocol PRN Reason: AGITATION Stop: 09/26/17 01:09 Last Admin: 07/28/17 22:51 Dose: 1 mg Miscellaneous (Vancomycin Iv Per Pharmacy) 1 [facility] PRN PRN PRN Reason: PROTOCOL Stop: 09/25/17 00:28 Miscellaneous (Probiotic Screen) 1 [facility] PRN PRN PRN Reason: PROTOCOL Stop: 09/26/17 13:14 Pantoprazole Sodium (Protonix) 40 mg IVP DAILY [facility] Stop: 09/26/17 12:59 Last Admin: 07/28/17 13:55 Dose: 40 mg - Procedures Procedures: Procedures Procedure Code Date RESPIRATORY VENTILATION, 24-96 CONSECUTIVE HOURS [id number] 07/26/17 Nutritional Asmnt/Malnutr-PDOC - Dietary Evaluation Malnutrition Findings (Please click <Entered> for more info): Nutritional Asmnt/Malnutrition Start: 07/27/17 07: 32 Text: Status: Complete Freq: Document 07/28/17 10:29 [email or web address] (Rec: 07/28/17 11:23 LCHENG [email or web address]) Nutritional Asmnt/Malnutrition Patient General Information Nutritional Screening High Risk Screening Diagnosis Pneumonia, Sepsis Pertinent Medical Hx/Surgical Hx S/P spinal fracture surgery Subjective Information Pt was admited for abnormal lab values, dx of pneumonia and sepsis. Pt is visited this morning, awake and alert, not able to talk on vent. Tube feeding is currently not running at this time. RN states pt is tolerating tube feeding well, no residual. No pain at this time. Current Diet Order/ Nutrition Support Peptamen 1.2, 55ml x 20hr from 12pm-8am, providing 1200kcal, 76g pro Patient / S.O Not Indicated Pertinent Medications Vitamin C, Vancomycin, Piperacilin, Sodium IV 40ml/hr Pertinent Labs 07/28: Na 137, K 4.1 (6.1 on ), Cl 104, BUN 22, Cr 0.4L, GLU 135H, Alb 2.4 L, Ca 8.3L, AST 43H, ALT 56H, Ammonia 77H Nutritional Hx/Data Height 1.63 m Height (Calculated Centimeters) 162.6 Current Weight (lbs) 81.76 kg Weight (Calculated Kilograms) 81.8 Weight (Calculated Grams) 79389.0 [place] Body Weight 120 % [place] Body Weight 150 Weight Status Obese GI Symptoms GI Symptoms None Food Allergies No Skin Integrity/Comment: Extremities edema: non-pitting 2+ Estimated Nutritional Goals BEE in Kcals: Adj wt of IBW Calories/Kcals/Kg 25-30 Kcals Calculated 5967-9145 Protein: Adj wt of IBW Protein g/k.2-1.5 Protein Calculated 74-92 Fluid: ml 1535-1842ml (1ml/kcal) Nutritional Problem 1. Problem Problem Increased nutrition needs ( calorie and protein) Etiology increased needs for recovery Signs/Symptoms: dx of pneumonia and sepsis Malnutrition Alert Protein-Calorie Malnutrition N/A Is there a minimum of two criteria No selected? Query Text:Check all the applicable criteria. A minimum of two criteria are recommended for diagnosis of either severe or non-severe malnutrition. Intervention/Recommendation Recommendations by RD Increase Calorie Intake Comments 1. current nutrition support provides 1200kcal, 74g protein , which meets 78% of calorie needs and 100% of protein needs 2. recommend increase tube feeding rate to 60ml/hr x 20hr to provide 1440kcal, 91g pro, meeting 94% of calorie needs and 1005 of protein needs. 3. monitor tube feeding rate, residual and tolerance. Expected Outcomes/Goals Expected Outcomes/Goals 1. Pt will receive 100% of nutrition needs via nutrition support, and tolerate goal rate. 2. Edema will improve 3. Pt may slightly gained wt due to edema. Monitor wt daily , wt will remain admission wt 4. Monitor labs, lab values to approach WNL 5. Skin stability
[2017-07-29] MEDS: Lactobacillus Rhamnosus 10 Billion CFU Capsule PO SCH (09:28)
[2017-07-29] MEDS: Aspirin 81mg Chewable Tab GT SCH (09:28)
[2017-07-29 09:46] LABS: pH 7.47 (7.35-7.45)
[2017-07-29 09:47] LABS: ALLEN TEST YES
[2017-07-29] MEDS: Vancomycin HCl 1.5 GM in Sodium Chloride 0.9% 500 ML IV SCH ×2 (12:20→21:50)
[2017-07-29] MEDS: Cefepime 1 GM in Sodium Chloride 0.9% 50 ML IV SCH ×2 (15:41→21:37)
[2017-07-29] MEDS ORDERED: Levofloxacin 500mg/100mL 500 MG/100 ML BAG IV SCH (18:45)
[2017-07-29] MEDS: Sodium Chloride 0.9% 1,000 ML IV SCH (21:37)
[2017-07-30] MEDS: HYDROmorphone 1 mg/mL 1mL Syr IVP PRN (01:07)
[2017-07-30] MEDS: Albuterol/Ipratropium Neb 3 ML AERS HHN SCH ×3 (03:32→12:08)
--- NOTE | 2017-07-30 04:49 | Progress Notes ---
DATE: 07/29/2017 PROBLEM LIST: 1. Persistent respiratory failure. 2. Right lower lobe infiltrate with atelectasis. 3. C4-C5 quadriparesis. SYMPTOMS: Nil. Sleeping, arousable. No respiratory distress. PHYSICAL EXAMINATION: VITAL SIGNS: Afebrile, pulse is 70s. Blood pressure is 130/60, and saturation is 95% on 30% of oxygen. NECK: Veins not visualized. Good bilateral carotid upstroke. CHEST: Shows diminished air entry with occasional rhonchi. HEART: Regular. EXTREMITIES: Shows no peripheral edema. LABORATORY DATA: The patient's microbiology shows E. coli sensitive to most of the antibiotics. PLANS AND SUGGESTIONS: We will go ahead and stop the patient's current antibiotic. We will put Maxipime and see how he does and then we will follow through chest x-ray, etc. and go from there. JOB# [id number]
[2017-07-30] MEDS: Budesonide 0.5 Mg/2 mL Ud HHN SCH (07:11)
[2017-07-30 07:27] LABS: ANION GAP 8.7 (7.0-16.0); BUN - UREA NITROGEN 15 mg/dL (7-25); CALCIUM SERUM 8.2 mg/dL (8.6-10.3); CARBON DIOXIDE 25.3 mEq/L (21.0-31.0); CHLORIDE 102 mEq/L (98-107); CREATININE - SERUM 0.3 mg/dL (0.6-1.2); GFR AFRICAN-AMERICAN > 60.0 ml/min (>90); GFR NON AFRICAN-AMERICAN > 60.0 ml/min; GLUCOSE 202 mg/dL (40-70); SODIUM SERUM 132 mEq/L (136-145)
[2017-07-30 07:37] LABS: % BASOPHILS 0.4 % (0.0-2.0); % EOSINOPHILS 4.7 % (0.0-5.0); % LYMPHOCYTES 13.6 % (20.0-50.0); % MONOCYTES 7.5 % (2.0-10.0); % NEUTROPHILS 73.8 % (40.0-80.0); EOSINOPHILE ABSOLUTE 0.4 Th/cmm (0.1-0.4); HEMATOCRIT 25.9 % (41.0-60); HEMOGLOBIN 8.6 gm/dL (12-16); LYMPHOCYTE ABSOLUTE 1.2 Th/cmm (1.5-3.0); MEAN CELL VOLUME 94.9 fl (81-100); MEAN CORPUSCULAR HEMOGLOBIN 31.4 pg (27.0-31.0); MEAN CORPUSCULAR HGB CONC 33.1 pg (28.0-36.0); MEAN PLATELET VOLUME 6.9 fl; MONOCYTE ABSOLUTE 0.7 Th/cmm (0.3-1.0); NEUTROPHILE ABSOLUTE 6.8 Th/cmm (1.8-8.0); PLATELET COUNT 373 Th/cmm (150-400); RED BLOOD COUNT 2.73 Mil/cmm (3.80-5.10); RED CELL DISTRIBUTION WIDTH 16.3 % (11.5-20.0); WHITE BLOOD COUNT 9.1 Th/cmm (4.8-10.8)
--- NOTE | 2017-07-30 08:19 | Diagnostic Imaging Report ---
CHEST X-RAY: AP view INDICATION: Shortness of breath COMPARISON: 07/29/2017 FINDINGS: Tracheostomy tube is noted. Right basal infiltrates are noted with small right effusion. There is linear density of the left midlung with adjacent nodularity. Mild cardiomegaly is noted. IMPRESSION: Persistent right basal infiltrate and small right effusion. Left midlung nodularity. A small pulmonary nodule cannot be excluded. Recommend short-term follow-up with CT of the chest.
[2017-07-30] MEDS: Lactobacillus Rhamnosus 10 Billion CFU Capsule PO SCH (08:22)
[2017-07-30] MEDS: Aspirin 81mg Chewable Tab GT SCH (08:22)
[2017-07-30 08:57] LABS: ALLEN TEST YES; pH 7.52 (7.35-7.45)
[2017-07-30] MEDS: Cefepime 1 GM in Sodium Chloride 0.9% 50 ML IV SCH (09:00)
[2017-07-30] MEDS: Chlorhexidine Gluconate 0.12% 15mL Mouthwash MM SCH (09:31)
[2017-07-30] MEDS: Ascorbic Acid 500 mg/5 mL UDC GT SCH (09:35)
--- NOTE | 2017-07-30 11:33 | Internal Medicine Prog Note ---
Internal Medicine Subjective - Subjective Service Date: 07/30/17 (on vent) Patient seen and examined:: with staff Patient is:: awake Per staff patient has:: no adverse event, tolerating meds Internal Medicine Objective - Results Result Diagrams: 07/30/17 07:00 07/30/17 07:00 Recent Labs: Laboratory Last Values WBC 9.1 Th/cmm (4.8-10.8) 07/30/17 07:00 RBC 2.73 Mil/cmm (3.80-5.10) L 07/30/17 07:00 Hgb 8.6 gm/dL (12-16) L 07/30/17 07:00 Hct 25.9 % (41.0-60) L 07/30/17 07:00 MCV 94.9 fl (81-100) 07/30/17 07:00 MCH 31.4 pg (27.0-31.0) H 07/30/17 07:00 MCHC Differential 33.1 pg (28.0-36.0) 07/30/17 07:00 RDW 16.3 % (11.5-20.0) 07/30/17 07:00 Plt Count 373 Th/cmm (150-400) 07/30/17 07:00 MPV 6.9 fl 07/30/17 07:00 Neutrophils % 73.8 % (40.0-80.0) 07/30/17 07:00 Lymphocytes % 13.6 % (20.0-50.0) L 07/30/17 07:00 Monocytes % 7.5 % (2.0-10.0) 07/30/17 07:00 Eosinophils % 4.7 % (0.0-5.0) 07/30/17 07:00 Basophils % 0.4 % (0.0-2.0) 07/30/17 07:00 Specimen Source Arterial 07/30/17 08:48 Sample Site Left Radial 07/30/17 08:48 pH 7.52 (7.35-7.45) H 11 08:48 pCO2 34.0 mmHg (35.0-45.0) L 07/30/17 08:48 pO2 60.0 mmHg (80.0-100.0) L 07/30/17 08:48 HCO3 28.7 mEq/L (20.0-26.0) H 07/30/17 08:48 Base Excess 5.0 mEq/L (-3.0-3.0) H 07/30/17 08:48 O2 Saturation 93.0 % (92.0-100.0) 07/30/17 08:48 Shahid Test YES 07/30/17 08:48 Vent Rate 16 07/30/17 08:48 Inspired O2 30 07/30/17 08:48 Tidal Volume 550 07/30/17 08:48 PEEP 5 07/30/17 08:48 Pressure (ins/psv/peep) NA 07/30/17 08:48 Critical Value E.BRAXTON 07/30/17 08:48 Sodium 132 mEq/L (136-145) L 07/30/17 07:00 Potassium 4.0 mEq/L (3.5-5.1) 07/30/17 07:00 Chloride 102 mEq/L (98-107) 07/30/17 07:00 Carbon Dioxide 25.3 mEq/L (21.0-31.0) 07/30/17 07:00 Anion Gap 8.7 (7.0-16.0) 07/30/17 07:00 BUN 15 mg/dL (7-25) 07/30/17 07:00 Creatinine 0.3 mg/dL (0.6-1.2) L 07/30/17 07:00 Est GFR ( Amer) > 60.0 ml/min (>90) 07/30/17 07:00 Est GFR (Non-Af Amer) > 60.0 ml/min 07/30/17 07:00 BUN/Creatinine Ratio 50.0 07/30/17 07:00 Glucose 202 mg/dL (40-70) H 07/30/17 07:00 POC Glucose 150 MG/DL (70 - 105) H 07/29/17 12:07 Hemoglobin A1c % 5.8 % (4.0-6.0) 07/29/17 04:39 Whole Bld Lactic Acid 0.93 mmol/L (0.60-1.99) 07/27/17 04:35 Calcium 8.2 mg/dL (8.6-10.3) L 07/30/17 07:00 Total Bilirubin 0.5 mg/dL (0.3-1.0) 07/29/17 04:39 Direct Bilirubin 0.17 mg/dL (0.0-0.2) 07/29/17 04:39 AST 33 U/L (13-39) 07/29/17 04:39 ALT 53 U/L (7-52) H 07/29/17 04:39 Alkaline Phosphatase 147 U/L (34-104) H 07/29/17 04:39 Ammonia 77 umol/L (16-53) H 07/28/17 07:30 Total Protein 6.9 gm/dL (6.0-8.3) 07/29/17 04:39 Albumin 2.3 gm/dL (3.7-5.3) L 07/29/17 04:39 Globulin 4.6 gm/dL 07/29/17 04:39 Albumin/Globulin Ratio 0.5 (1.0-1.8) L 07/29/17 04:39 TSH 2.28 uIU/ml (0.34-5.60) 07/27/17 04:35 Urine Source [place] 07/26/17 20:30 Urine Color YELLOW 07/26/17 20:30 Urine Clarity SLIGHTLY HAZY (CLEAR) 07/26/17 20:30 Urine pH 5.5 (4.6 - 8.0) 07/26/17 20:30 Ur Specific [place] 1.010 (1.005-1.030) 07/26/17 20:30 Urine Protein NEGATIVE mg/dL (NEGATIVE) 07/26/17 20:30 Urine Glucose (UA) NEGATIVE mg/dL (NEGATIVE) 07/26/17 20:30 Urine Ketones NEGATIVE mg/dL (NEGATIVE) 07/26/17 20:30 Urine Blood TRACE (NEGATIVE) 07/26/17 20:30 Urine Nitrate NEGATIVE (NEGATIVE) 07/26/17 20:30 Urine Bilirubin NEGATIVE (NEGATIVE) 07/26/17 20:30 Urine Urobilinogen 0.2 E.U./dL (0.2 - 1.0) 07/26/17 20:30 Ur Leukocyte Esterase TRACE (NEGATIVE) H 07/26/17 20:30 Urine RBC 2-5 /hpf (0-5) 07/26/17 20:30 Urine WBC 10-25 /hpf (0-5) H 07/26/17 20:30 Ur Epithelial Cells FEW /lpf (FEW) 07/26/17 20:30 Urine Bacteria 1+ /hpf (NONE SEEN) H 07/26/17 20:30 Vancomycin Trough 17.4 ug/mL (10-20) 07/28/17 07:30 Phenytoin 5.0 ug/ml (10.0-20.0) L 07/26/17 20:56 Valproic Acid 30.9 ug/mL (50.0-100.0) L 07/26/17 20:56 Carbamazepine 4.0 ug/ml (4.0-12.0) 07/26/17 20:56 - Physical Exam Vitals and I&O: Vital Signs Temp 98.8 F 07/30/17 10:20 Pulse 89 07/30/17 10:20 Resp 21 07/30/17 10:20 BP 132/69 07/30/17 10:20 Pulse Ox 100 07/30/17 10:20 Intake & Output 07/29/17 07/30/17 07/30/17 18:59 06:59 18:59 Intake Total 600 1638 Output Total 1800 Balance -1200 1638 Weight (lbs) 182 lb Intake: Intake, IV Amount 600 1638 Cefepime 1 gm In Sodium 50 50 Chloride 0.9% 50 ml @ 100 mls/hr IV Q12HR [facility] Rx#: [id number] Levofloxacin 500mg/100mL 100 500 mg In 100 ml @ 100 mls/hr IV Q24HR [facility] Rx#: [id number] Piperacillin Sodium/ 50 Tazobact 3.375 gm In Sodium Chloride 0.9% 50 ml @ 100 mls/hr IV Q8HR [facility] Rx#:[id number] Sodium Chloride 0.9% 1, 988 000 ml @ 40 mls/hr IV . Q24H [facility] Rx#:[id number] Vancomycin HCl 1.5 gm In 500 500 Sodium Chloride 0.9% 500 ml @ 250 mls/hr IV Q12H [facility] Rx#:[id number] Output: Urine 1800 Active Medications: Current Medications Acetaminophen (Tylenol 650mg/20.3ml Suspension) 650 mg PO Q6H PRN PRN Reason: Fever > 101 Stop: 09/25/17 19:32 Last Admin: 07/30/17 06:28 Dose: 650 mg Acetaminophen (Tylenol 650mg/20.3ml Suspension) 650 mg GT BID [facility] Stop: 09/26/17 08:59 Last Admin: 07/30/17 09:34 Dose: Not Given Acetaminophen/Hydrocodone Bitart ([place] 5mg/325mg) 1 tab GT Q4H PRN PRN Reason: Pain (Moderate) Stop: 09/25/17 19:35 Acetaminophen/Hydrocodone Bitart ([place] 10 Mg/325 Mg) 1 tab GT Q4H PRN PRN Reason: Pain (Severe) Stop: 09/25/17 19:36 Last Admin: 07/28/17 09:00 Dose: 1 tab Acetylcysteine (Mucomyst 20%) 5 ml HHN BIDRT [facility] Stop: 09/25/17 18:59 Last Admin: 07/30/17 07:10 Dose: 5 ml Albuterol/Ipratropium (Duoneb Neb) 3 ml HHN Q4HRT [facility] Stop: 09/25/17 14:59 Last Admin: 07/30/17 07:10 Dose: 3 ml Amlodipine Besylate (Norvasc) 10 mg GT DAILY [facility] Stop: 09/26/17 08:59 Last Admin: 07/30/17 08:22 Dose: 10 mg Ascorbic Acid (Vitamin C) 500 mg GT DAILY [facility] Stop: 09/26/17 08:59 Last Admin: 07/30/17 09:35 Dose: 500 mg Aspirin (Aspirin Chewable) 81 mg GT DAILY [facility] Stop: 09/26/17 08:59 Last Admin: 07/30/17 08:22 Dose: 81 mg Bisacodyl (Dulcolax 10 Mg Supp) 10 mg RC DAILY PRN PRN Reason: Constipation Stop: 09/25/17 20:37 Last Admin: 07/30/17 03:38 Dose: 10 mg Budesonide (Pulmicort) 0.5 mg HHN BIDRT [facility] Stop: 09/25/17 18:59 Last Admin: 07/30/17 07:11 Dose: 0.5 mg Chlorhexidine Gluconate (Peridex) 15 ml MM 0800,2000 [facility] Stop: 09/25/17 08:59 Last Admin: 07/30/17 09:31 Dose: 15 ml Hydromorphone HCl (Dilaudid) 1 mg IVP Q4HR PRN PRN Reason: Pain (Moderate-Severe) Stop: 09/26/17 12:24 Last Admin: 07/30/17 01:07 Dose: 1 mg Sodium Chloride (Nacl 0.9%) 1,000 mls @ 40 mls/hr IV .Q24H [facility] Stop: 09/25/17 20:44 Last Admin: 07/29/17 21:37 Dose: 40 mls/hr Cefepime HCl 1 gm/ Sodium (Chloride) 50 mls @ 100 mls/hr IV Q12HR [facility] Stop: 09/27/17 14:44 Last Infusion: 07/29/17 22:10 Dose: Infused Levofloxacin (Levaquin Pb) 500 mg in 100 mls @ 100 mls/hr IV Q24HR [facility] Stop: 09/27/17 18:44 Last Infusion: 07/29/17 21:05 Dose: Infused Lactobacillus Rhamnosus (Culturelle) 1 each PO DAILY [facility] Stop: 09/27/17 08:59 Last Admin: 07/30/17 08:22 Dose: 1 each Lorazepam (Ativan) 1 mg IVP Q6HR PRN; Protocol PRN Reason: AGITATION Stop: 09/26/17 01:09 Last Admin: 07/29/17 23:29 Dose: 1 mg Miscellaneous (Probiotic Screen) 1 ea [facility] PRN PRN PRN Reason: PROTOCOL Stop: 09/26/17 13:14 Pantoprazole Sodium (Protonix) 40 mg IVP DAILY [facility] Stop: 09/26/17 12:59 Last Admin: 07/30/17 08:26 Dose: 40 mg General: weak HEENT: NC/AT, PERRLA Neck: Supple Lungs: ronchi Cardiovascular: RRR, Normal S1, Normal S2, without murmur Abdomen: soft, non-tender, non-distended Extremities: excoriation Neurological: no change - Procedures Procedures: Procedures Procedure Code Date RESPIRATORY VENTILATION, 24-96 CONSECUTIVE HOURS [id number] 07/26/17 Internal Medicine Assmt/Plan - Assessment Assessment: acute respiratory failure septic shock pneumonia acute uti ankylosing spondylosis epilepsy vdrf - Plan Plan: vent support ivabx as per id dc planning in progress continue current plan of care Nutritional Asmnt/Malnutr-PDOC - Dietary Evaluation Malnutrition Findings (Please click <Entered> for more info): Nutritional Asmnt/Malnutrition Start: 07/27/17 07: 32 Text: Status: Complete Freq: Document 07/28/17 10:29 LCHENG (Rec: 07/28/17 11:23 LCHENG [email or web address]) Nutritional Asmnt/Malnutrition Patient General Information Nutritional Screening High Risk Diagnosis Pneumonia, Sepsis Pertinent Medical Hx/Surgical Hx S/P spinal fracture surgery Subjective Information Pt was admited for abnormal lab values, dx of pneumonia and sepsis. Pt is visited this morning, awake and alert, not able to talk on vent. Tube feeding is currently not running at this time. RN states pt is tolerating tube feeding well, no residual. No pain at this time. Current Diet Order/ Nutrition Support Peptamen 1.2, 55ml x 20hr from 12pm-8am, providing 1200kcal, 76g pro Patient / S.O Not Indicated Pertinent Medications Vitamin C, Vancomycin, Piperacilin, Sodium IV 40ml/hr Pertinent Labs 07/28: Na 137, K 4.1 (6.1 on ), Cl 104, BUN 22, Cr 0.4L, GLU 135H, Alb 2.4 L, Ca 8.3L, AST 43H, ALT 56H, Ammonia 77H Nutritional Hx/Data Height 5 ft 4 in Height (Calculated Centimeters) 162.6 Current Weight (lbs) 180 lb 4 oz Weight (Calculated Kilograms) 81.8 Weight (Calculated Grams) 74047.0 [place] Body Weight 120 % [place] Body Weight 150 Weight Status Obese GI Symptoms GI Symptoms None Food Allergies No Skin Integrity/Comment: Extremities edema: non-pitting 2+ Estimated Nutritional Goals BEE in Kcals: Adj wt of IBW Calories/Kcals/Kg 25-30 Kcals Calculated 3492-9859 Protein: Adj wt of IBW Protein g/k.2-1.5 Protein Calculated 74-92 Fluid: ml 1535-1842ml (1ml/kcal) Nutritional Problem 1. Problem Problem Increased nutrition needs ( calorie and protein) Etiology increased needs for recovery Signs/Symptoms: dx of pneumonia and sepsis Malnutrition Alert Protein-Calorie Malnutrition N/A Is there a minimum of two criteria No selected? Query Text:Check all the applicable criteria. A minimum of two criteria are recommended for diagnosis of either severe or non-severe malnutrition. Intervention/Recommendation Recommendations by RD Increase Calorie Intake Comments 1. current nutrition support provides 1200kcal, 74g protein , which meets 78% of calorie needs and 100% of protein needs 2. recommend increase tube feeding rate to 60ml/hr x 20hr to provide 1440kcal, 91g pro, meeting 94% of calorie needs and 1005 of protein needs. 3. monitor tube feeding rate, residual and tolerance. Expected Outcomes/Goals Expected Outcomes/Goals 1. Pt will receive 100% of nutrition needs via nutrition support, and tolerate goal rate. 2. Edema will improve 3. Pt may slightly gained wt due to edema. Monitor wt daily , wt will remain admission wt 4. Monitor labs, lab values to approach WNL 5. Skin stability
--- NOTE | 2017-07-30 11:33 | Internal Medicine Prog Note ---
Internal Medicine Subjective - Subjective Service Date: 07/30/17 (on vent) Patient seen and examined:: with staff Patient is:: awake Per staff patient has:: no adverse event, tolerating meds Internal Medicine Objective - Results Result Diagrams: 07/30/17 07:00 07/30/17 07:00 Recent Labs: Laboratory Last Values WBC 9.1 Th/cmm (4.8-10.8) 07/30/17 07:00 RBC 2.73 Mil/cmm (3.80-5.10) L 07/30/17 07:00 Hgb 8.6 gm/dL (12-16) L 07/30/17 07:00 Hct 25.9 % (41.0-60) L 07/30/17 07:00 MCV 94.9 fl (81-100) 07/30/17 07:00 MCH 31.4 pg (27.0-31.0) H 07/30/17 07:00 MCHC Differential 33.1 pg (28.0-36.0) 07/30/17 07:00 RDW 16.3 % (11.5-20.0) 07/30/17 07:00 Plt Count 373 Th/cmm (150-400) 07/30/17 07:00 MPV 6.9 fl 07/30/17 07:00 Neutrophils % 73.8 % (40.0-80.0) 07/30/17 07:00 Lymphocytes % 13.6 % (20.0-50.0) L 07/30/17 07:00 Monocytes % 7.5 % (2.0-10.0) 07/30/17 07:00 Eosinophils % 4.7 % (0.0-5.0) 07/30/17 07:00 Basophils % 0.4 % (0.0-2.0) 07/30/17 07:00 Specimen Source Arterial 07/30/17 08:48 Sample Site Left Radial 07/30/17 08:48 pH 7.52 (7.35-7.45) H 11 08:48 pCO2 34.0 mmHg (35.0-45.0) L 07/30/17 08:48 pO2 60.0 mmHg (80.0-100.0) L 07/30/17 08:48 HCO3 28.7 mEq/L (20.0-26.0) H 07/30/17 08:48 Base Excess 5.0 mEq/L (-3.0-3.0) H 07/30/17 08:48 O2 Saturation 93.0 % (92.0-100.0) 07/30/17 08:48 Shahid Test YES 07/30/17 08:48 Vent Rate 16 07/30/17 08:48 Inspired O2 30 07/30/17 08:48 Tidal Volume 550 07/30/17 08:48 PEEP 5 07/30/17 08:48 Pressure (ins/psv/peep) NA 07/30/17 08:48 Critical Value E.BRAXTON 07/30/17 08:48 Sodium 132 mEq/L (136-145) L 07/30/17 07:00 Potassium 4.0 mEq/L (3.5-5.1) 07/30/17 07:00 Chloride 102 mEq/L (98-107) 07/30/17 07:00 Carbon Dioxide 25.3 mEq/L (21.0-31.0) 07/30/17 07:00 Anion Gap 8.7 (7.0-16.0) 07/30/17 07:00 BUN 15 mg/dL (7-25) 07/30/17 07:00 Creatinine 0.3 mg/dL (0.6-1.2) L 07/30/17 07:00 Est GFR ( Amer) > 60.0 ml/min (>90) 07/30/17 07:00 Est GFR (Non-Af Amer) > 60.0 ml/min 07/30/17 07:00 BUN/Creatinine Ratio 50.0 07/30/17 07:00 Glucose 202 mg/dL (40-70) H 07/30/17 07:00 POC Glucose 150 MG/DL (70 - 105) H 07/29/17 12:07 Hemoglobin A1c % 5.8 % (4.0-6.0) 07/29/17 04:39 Whole Bld Lactic Acid 0.93 mmol/L (0.60-1.99) 07/27/17 04:35 Calcium 8.2 mg/dL (8.6-10.3) L 07/30/17 07:00 Total Bilirubin 0.5 mg/dL (0.3-1.0) 07/29/17 04:39 Direct Bilirubin 0.17 mg/dL (0.0-0.2) 07/29/17 04:39 AST 33 U/L (13-39) 07/29/17 04:39 ALT 53 U/L (7-52) H 07/29/17 04:39 Alkaline Phosphatase 147 U/L (34-104) H 07/29/17 04:39 Ammonia 77 umol/L (16-53) H 07/28/17 07:30 Total Protein 6.9 gm/dL (6.0-8.3) 07/29/17 04:39 Albumin 2.3 gm/dL (3.7-5.3) L 07/29/17 04:39 Globulin 4.6 gm/dL 07/29/17 04:39 Albumin/Globulin Ratio 0.5 (1.0-1.8) L 07/29/17 04:39 TSH 2.28 uIU/ml (0.34-5.60) 07/27/17 04:35 Urine Source [place] 07/26/17 20:30 Urine Color YELLOW 07/26/17 20:30 Urine Clarity SLIGHTLY HAZY (CLEAR) 07/26/17 20:30 Urine pH 5.5 (4.6 - 8.0) 07/26/17 20:30 Ur Specific [place] 1.010 (1.005-1.030) 07/26/17 20:30 Urine Protein NEGATIVE mg/dL (NEGATIVE) 07/26/17 20:30 Urine Glucose (UA) NEGATIVE mg/dL (NEGATIVE) 07/26/17 20:30 Urine Ketones NEGATIVE mg/dL (NEGATIVE) 07/26/17 20:30 Urine Blood TRACE (NEGATIVE) 07/26/17 20:30 Urine Nitrate NEGATIVE (NEGATIVE) 07/26/17 20:30 Urine Bilirubin NEGATIVE (NEGATIVE) 07/26/17 20:30 Urine Urobilinogen 0.2 E.U./dL (0.2 - 1.0) 07/26/17 20:30 Ur Leukocyte Esterase TRACE (NEGATIVE) H 07/26/17 20:30 Urine RBC 2-5 /hpf (0-5) 07/26/17 20:30 Urine WBC 10-25 /hpf (0-5) H 07/26/17 20:30 Ur Epithelial Cells FEW /lpf (FEW) 07/26/17 20:30 Urine Bacteria 1+ /hpf (NONE SEEN) H 07/26/17 20:30 Vancomycin Trough 17.4 ug/mL (10-20) 07/28/17 07:30 Phenytoin 5.0 ug/ml (10.0-20.0) L 07/26/17 20:56 Valproic Acid 30.9 ug/mL (50.0-100.0) L 07/26/17 20:56 Carbamazepine 4.0 ug/ml (4.0-12.0) 07/26/17 20:56 - Physical Exam Vitals and I&O: Vital Signs Temp 98.8 F 07/30/17 10:20 Pulse 89 07/30/17 10:20 Resp 21 07/30/17 10:20 BP 132/69 07/30/17 10:20 Pulse Ox 100 07/30/17 10:20 Intake & Output 07/29/17 07/30/17 07/30/17 18:59 06:59 18:59 Intake Total 600 1638 Output Total 1800 Balance -1200 1638 Weight (lbs) 182 lb Intake: Intake, IV Amount 600 1638 Cefepime 1 gm In Sodium 50 50 Chloride 0.9% 50 ml @ 100 mls/hr IV Q12HR [facility] Rx#: [id number] Levofloxacin 500mg/100mL 100 500 mg In 100 ml @ 100 mls/hr IV Q24HR [facility] Rx#: [id number] Piperacillin Sodium/ 50 Tazobact 3.375 gm In Sodium Chloride 0.9% 50 ml @ 100 mls/hr IV Q8HR [facility] Rx#:[id number] Sodium Chloride 0.9% 1, 988 000 ml @ 40 mls/hr IV . Q24H [facility] Rx#:[id number] Vancomycin HCl 1.5 gm In 500 500 Sodium Chloride 0.9% 500 ml @ 250 mls/hr IV Q12H [facility] Rx#:[id number] Output: Urine 1800 Active Medications: Current Medications Acetaminophen (Tylenol 650mg/20.3ml Suspension) 650 mg PO Q6H PRN PRN Reason: Fever > 101 Stop: 09/25/17 19:32 Last Admin: 07/30/17 06:28 Dose: 650 mg Acetaminophen (Tylenol 650mg/20.3ml Suspension) 650 mg GT BID [facility] Stop: 09/26/17 08:59 Last Admin: 07/30/17 09:34 Dose: Not Given Acetaminophen/Hydrocodone Bitart ([place] 5mg/325mg) 1 tab GT Q4H PRN PRN Reason: Pain (Moderate) Stop: 09/25/17 19:35 Acetaminophen/Hydrocodone Bitart ([place] 10 Mg/325 Mg) 1 tab GT Q4H PRN PRN Reason: Pain (Severe) Stop: 09/25/17 19:36 Last Admin: 07/28/17 09:00 Dose: 1 tab Acetylcysteine (Mucomyst 20%) 5 ml HHN BIDRT [facility] Stop: 09/25/17 18:59 Last Admin: 07/30/17 07:10 Dose: 5 ml Albuterol/Ipratropium (Duoneb Neb) 3 ml HHN Q4HRT [facility] Stop: 09/25/17 14:59 Last Admin: 07/30/17 07:10 Dose: 3 ml Amlodipine Besylate (Norvasc) 10 mg GT DAILY [facility] Stop: 09/26/17 08:59 Last Admin: 07/30/17 08:22 Dose: 10 mg Ascorbic Acid (Vitamin C) 500 mg GT DAILY [facility] Stop: 09/26/17 08:59 Last Admin: 07/30/17 09:35 Dose: 500 mg Aspirin (Aspirin Chewable) 81 mg GT DAILY [facility] Stop: 09/26/17 08:59 Last Admin: 07/30/17 08:22 Dose: 81 mg Bisacodyl (Dulcolax 10 Mg Supp) 10 mg RC DAILY PRN PRN Reason: Constipation Stop: 09/25/17 20:37 Last Admin: 07/30/17 03:38 Dose: 10 mg Budesonide (Pulmicort) 0.5 mg HHN BIDRT [facility] Stop: 09/25/17 18:59 Last Admin: 07/30/17 07:11 Dose: 0.5 mg Chlorhexidine Gluconate (Peridex) 15 ml MM 0800,2000 [facility] Stop: 09/25/17 08:59 Last Admin: 07/30/17 09:31 Dose: 15 ml Hydromorphone HCl (Dilaudid) 1 mg IVP Q4HR PRN PRN Reason: Pain (Moderate-Severe) Stop: 09/26/17 12:24 Last Admin: 07/30/17 01:07 Dose: 1 mg Sodium Chloride (Nacl 0.9%) 1,000 mls @ 40 mls/hr IV .Q24H [facility] Stop: 09/25/17 20:44 Last Admin: 07/29/17 21:37 Dose: 40 mls/hr Cefepime HCl 1 gm/ Sodium (Chloride) 50 mls @ 100 mls/hr IV Q12HR [facility] Stop: 09/27/17 14:44 Last Infusion: 07/29/17 22:10 Dose: Infused Levofloxacin (Levaquin Pb) 500 mg in 100 mls @ 100 mls/hr IV Q24HR [facility] Stop: 09/27/17 18:44 Last Infusion: 07/29/17 21:05 Dose: Infused Lactobacillus Rhamnosus (Culturelle) 1 each PO DAILY [facility] Stop: 09/27/17 08:59 Last Admin: 07/30/17 08:22 Dose: 1 each Lorazepam (Ativan) 1 mg IVP Q6HR PRN; Protocol PRN Reason: AGITATION Stop: 09/26/17 01:09 Last Admin: 07/29/17 23:29 Dose: 1 mg Miscellaneous (Probiotic Screen) 1 ea MC PRN PRN PRN Reason: PROTOCOL Stop: 09/26/17 13:14 Pantoprazole Sodium (Protonix) 40 mg IVP DAILY [facility] Stop: 09/26/17 12:59 Last Admin: 07/30/17 08:26 Dose: 40 mg General: weak HEENT: NC/AT, PERRLA Neck: Supple Lungs: ronchi Cardiovascular: RRR, Normal S1, Normal S2, without murmur Abdomen: soft, non-tender, non-distended Extremities: excoriation Neurological: no change - Procedures Procedures: Procedures Procedure Code Date RESPIRATORY VENTILATION, 24-96 CONSECUTIVE HOURS [id number] 07/26/17 Internal Medicine Assmt/Plan - Assessment Assessment: acute respiratory failure septic shock pneumonia acute uti ankylosing spondylosis epilepsy vdrf - Plan Plan: vent support ivabx as per id dc planning in progress continue current plan of care Nutritional Asmnt/Malnutr-PDOC - Dietary Evaluation Malnutrition Findings (Please click <Entered> for more info): Nutritional Asmnt/Malnutrition Start: 07/27/17 07: 32 Text: Status: Complete Freq: Document 07/28/17 10:29 LCHENG (Rec: 07/28/17 11:23 LCHENG [email or web address]) Nutritional Asmnt/Malnutrition Patient General Information Nutritional Screening High Risk Diagnosis Pneumonia, Sepsis Pertinent Medical Hx/Surgical Hx S/P spinal fracture surgery Subjective Information Pt was admited for abnormal lab values, dx of pneumonia and sepsis. Pt is visited this morning, awake and alert, not able to talk on vent. Tube feeding is currently not running at this time. RN states pt is tolerating tube feeding well, no residual. No pain at this time. Current Diet Order/ Nutrition Support Peptamen 1.2, 55ml x 20hr from 12pm-8am, providing 1200kcal, 76g pro Patient / S.O Not Indicated Pertinent Medications Vitamin C, Vancomycin, Piperacilin, Sodium IV 40ml/hr Pertinent Labs 07/28: Na 137, K 4.1 (6.1 on ), Cl 104, BUN 22, Cr 0.4L, GLU 135H, Alb 2.4 L, Ca 8.3L, AST 43H, ALT 56H, Ammonia 77H Nutritional Hx/Data Height 5 ft 4 in Height (Calculated Centimeters) 162.6 Current Weight (lbs) 180 lb 4 oz Weight (Calculated Kilograms) 81.8 Weight (Calculated Grams) 78905.0 [place] Body Weight 120 % [place] Body Weight 150 Weight Status Obese GI Symptoms GI Symptoms None Food Allergies No Skin Integrity/Comment: Extremities edema: non-pitting 2+ Estimated Nutritional Goals BEE in Kcals: Adj wt of IBW Calories/Kcals/Kg 25-30 Kcals Calculated 1421-6347 Protein: Adj wt of IBW Protein g/k.2-1.5 Protein Calculated 74-92 Fluid: ml 1535-1842ml (1ml/kcal) Nutritional Problem 1. Problem Problem Increased nutrition needs ( calorie and protein) Etiology increased needs for recovery Signs/Symptoms: dx of pneumonia and sepsis Malnutrition Alert Protein-Calorie Malnutrition N/A Is there a minimum of two criteria No selected? Query Text:Check all the applicable criteria. A minimum of two criteria are recommended for diagnosis of either severe or non-severe malnutrition. Intervention/Recommendation Recommendations by RD Increase Calorie Intake Comments 1. current nutrition support provides 1200kcal, 74g protein , which meets 78% of calorie needs and 100% of protein needs 2. recommend increase tube feeding rate to 60ml/hr x 20hr to provide 1440kcal, 91g pro, meeting 94% of calorie needs and 1005 of protein needs. 3. monitor tube feeding rate, residual and tolerance. Expected Outcomes/Goals Expected Outcomes/Goals 1. Pt will receive 100% of nutrition needs via nutrition support, and tolerate goal rate. 2. Edema will improve 3. Pt may slightly gained wt due to edema. Monitor wt daily , wt will remain admission wt 4. Monitor labs, lab values to approach WNL 5. Skin stability
--- NOTE | 2017-07-30 11:33 | Internal Medicine Prog Note ---
Internal Medicine Subjective - Subjective Service Date: 07/30/17 (on vent) Patient seen and examined:: with staff Patient is:: awake Per staff patient has:: no adverse event, tolerating meds Internal Medicine Objective - Results Result Diagrams: 07/30/17 07:00 07/30/17 07:00 Recent Labs: Laboratory Last Values WBC 9.1 Th/cmm (4.8-10.8) 07/30/17 07:00 RBC 2.73 Mil/cmm (3.80-5.10) L 07/30/17 07:00 Hgb 8.6 gm/dL (12-16) L 07/30/17 07:00 Hct 25.9 % (41.0-60) L 07/30/17 07:00 MCV 94.9 fl (81-100) 07/30/17 07:00 MCH 31.4 pg (27.0-31.0) H 07/30/17 07:00 MCHC Differential 33.1 pg (28.0-36.0) 07/30/17 07:00 RDW 16.3 % (11.5-20.0) 07/30/17 07:00 Plt Count 373 Th/cmm (150-400) 07/30/17 07:00 MPV 6.9 fl 07/30/17 07:00 Neutrophils % 73.8 % (40.0-80.0) 07/30/17 07:00 Lymphocytes % 13.6 % (20.0-50.0) L 07/30/17 07:00 Monocytes % 7.5 % (2.0-10.0) 07/30/17 07:00 Eosinophils % 4.7 % (0.0-5.0) 07/30/17 07:00 Basophils % 0.4 % (0.0-2.0) 07/30/17 07:00 Specimen Source Arterial 07/30/17 08:48 Sample Site Left Radial 07/30/17 08:48 pH 7.52 (7.35-7.45) H 11 08:48 pCO2 34.0 mmHg (35.0-45.0) L 07/30/17 08:48 pO2 60.0 mmHg (80.0-100.0) L 07/30/17 08:48 HCO3 28.7 mEq/L (20.0-26.0) H 07/30/17 08:48 Base Excess 5.0 mEq/L (-3.0-3.0) H 07/30/17 08:48 O2 Saturation 93.0 % (92.0-100.0) 07/30/17 08:48 Shahid Test YES 07/30/17 08:48 Vent Rate 16 07/30/17 08:48 Inspired O2 30 07/30/17 08:48 Tidal Volume 550 07/30/17 08:48 PEEP 5 07/30/17 08:48 Pressure (ins/psv/peep) NA 07/30/17 08:48 Critical Value E.BRAXTON 07/30/17 08:48 Sodium 132 mEq/L (136-145) L 07/30/17 07:00 Potassium 4.0 mEq/L (3.5-5.1) 07/30/17 07:00 Chloride 102 mEq/L (98-107) 07/30/17 07:00 Carbon Dioxide 25.3 mEq/L (21.0-31.0) 07/30/17 07:00 Anion Gap 8.7 (7.0-16.0) 07/30/17 07:00 BUN 15 mg/dL (7-25) 07/30/17 07:00 Creatinine 0.3 mg/dL (0.6-1.2) L 07/30/17 07:00 Est GFR ( Amer) > 60.0 ml/min (>90) 07/30/17 07:00 Est GFR (Non-Af Amer) > 60.0 ml/min 07/30/17 07:00 BUN/Creatinine Ratio 50.0 07/30/17 07:00 Glucose 202 mg/dL (40-70) H 07/30/17 07:00 POC Glucose 150 MG/DL (70 - 105) H 07/29/17 12:07 Hemoglobin A1c % 5.8 % (4.0-6.0) 07/29/17 04:39 Whole Bld Lactic Acid 0.93 mmol/L (0.60-1.99) 07/27/17 04:35 Calcium 8.2 mg/dL (8.6-10.3) L 07/30/17 07:00 Total Bilirubin 0.5 mg/dL (0.3-1.0) 07/29/17 04:39 Direct Bilirubin 0.17 mg/dL (0.0-0.2) 07/29/17 04:39 AST 33 U/L (13-39) 07/29/17 04:39 ALT 53 U/L (7-52) H 07/29/17 04:39 Alkaline Phosphatase 147 U/L (34-104) H 07/29/17 04:39 Ammonia 77 umol/L (16-53) H 07/28/17 07:30 Total Protein 6.9 gm/dL (6.0-8.3) 07/29/17 04:39 Albumin 2.3 gm/dL (3.7-5.3) L 07/29/17 04:39 Globulin 4.6 gm/dL 07/29/17 04:39 Albumin/Globulin Ratio 0.5 (1.0-1.8) L 07/29/17 04:39 TSH 2.28 uIU/ml (0.34-5.60) 07/27/17 04:35 Urine Source [place] 07/26/17 20:30 Urine Color YELLOW 07/26/17 20:30 Urine Clarity SLIGHTLY HAZY (CLEAR) 07/26/17 20:30 Urine pH 5.5 (4.6 - 8.0) 07/26/17 20:30 Ur Specific [place] 1.010 (1.005-1.030) 07/26/17 20:30 Urine Protein NEGATIVE mg/dL (NEGATIVE) 07/26/17 20:30 Urine Glucose (UA) NEGATIVE mg/dL (NEGATIVE) 07/26/17 20:30 Urine Ketones NEGATIVE mg/dL (NEGATIVE) 07/26/17 20:30 Urine Blood TRACE (NEGATIVE) 07/26/17 20:30 Urine Nitrate NEGATIVE (NEGATIVE) 07/26/17 20:30 Urine Bilirubin NEGATIVE (NEGATIVE) 07/26/17 20:30 Urine Urobilinogen 0.2 E.U./dL (0.2 - 1.0) 07/26/17 20:30 Ur Leukocyte Esterase TRACE (NEGATIVE) H 07/26/17 20:30 Urine RBC 2-5 /hpf (0-5) 07/26/17 20:30 Urine WBC 10-25 /hpf (0-5) H 07/26/17 20:30 Ur Epithelial Cells FEW /lpf (FEW) 07/26/17 20:30 Urine Bacteria 1+ /hpf (NONE SEEN) H 07/26/17 20:30 Vancomycin Trough 17.4 ug/mL (10-20) 07/28/17 07:30 Phenytoin 5.0 ug/ml (10.0-20.0) L 07/26/17 20:56 Valproic Acid 30.9 ug/mL (50.0-100.0) L 07/26/17 20:56 Carbamazepine 4.0 ug/ml (4.0-12.0) 07/26/17 20:56 - Physical Exam Vitals and I&O: Vital Signs Temp 98.8 F 07/30/17 10:20 Pulse 89 07/30/17 10:20 Resp 21 07/30/17 10:20 BP 132/69 07/30/17 10:20 Pulse Ox 100 07/30/17 10:20 Intake & Output 07/29/17 07/30/17 07/30/17 18:59 06:59 18:59 Intake Total 600 1638 Output Total 1800 Balance -1200 1638 Weight (lbs) 182 lb Intake: Intake, IV Amount 600 1638 Cefepime 1 gm In Sodium 50 50 Chloride 0.9% 50 ml @ 100 mls/hr IV Q12HR [facility] Rx#: [id number] Levofloxacin 500mg/100mL 100 500 mg In 100 ml @ 100 mls/hr IV Q24HR [facility] Rx#: [id number] Piperacillin Sodium/ 50 Tazobact 3.375 gm In Sodium Chloride 0.9% 50 ml @ 100 mls/hr IV Q8HR [facility] Rx#:[id number] Sodium Chloride 0.9% 1, 988 000 ml @ 40 mls/hr IV . Q24H [facility] Rx#:[id number] Vancomycin HCl 1.5 gm In 500 500 Sodium Chloride 0.9% 500 ml @ 250 mls/hr IV Q12H [facility] Rx#:[id number] Output: Urine 1800 Active Medications: Current Medications Acetaminophen (Tylenol 650mg/20.3ml Suspension) 650 mg PO Q6H PRN PRN Reason: Fever > 101 Stop: 09/25/17 19:32 Last Admin: 07/30/17 06:28 Dose: 650 mg Acetaminophen (Tylenol 650mg/20.3ml Suspension) 650 mg GT BID [facility] Stop: 09/26/17 08:59 Last Admin: 07/30/17 09:34 Dose: Not Given Acetaminophen/Hydrocodone Bitart ([place] 5mg/325mg) 1 tab GT Q4H PRN PRN Reason: Pain (Moderate) Stop: 09/25/17 19:35 Acetaminophen/Hydrocodone Bitart ([place] 10 Mg/325 Mg) 1 tab GT Q4H PRN PRN Reason: Pain (Severe) Stop: 09/25/17 19:36 Last Admin: 07/28/17 09:00 Dose: 1 tab Acetylcysteine (Mucomyst 20%) 5 ml HHN BIDRT [facility] Stop: 09/25/17 18:59 Last Admin: 07/30/17 07:10 Dose: 5 ml Albuterol/Ipratropium (Duoneb Neb) 3 ml HHN Q4HRT [facility] Stop: 09/25/17 14:59 Last Admin: 07/30/17 07:10 Dose: 3 ml Amlodipine Besylate (Norvasc) 10 mg GT DAILY [facility] Stop: 09/26/17 08:59 Last Admin: 07/30/17 08:22 Dose: 10 mg Ascorbic Acid (Vitamin C) 500 mg GT DAILY [facility] Stop: 09/26/17 08:59 Last Admin: 07/30/17 09:35 Dose: 500 mg Aspirin (Aspirin Chewable) 81 mg GT DAILY [facility] Stop: 09/26/17 08:59 Last Admin: 07/30/17 08:22 Dose: 81 mg Bisacodyl (Dulcolax 10 Mg Supp) 10 mg RC DAILY PRN PRN Reason: Constipation Stop: 09/25/17 20:37 Last Admin: 07/30/17 03:38 Dose: 10 mg Budesonide (Pulmicort) 0.5 mg HHN BIDRT [facility] Stop: 09/25/17 18:59 Last Admin: 07/30/17 07:11 Dose: 0.5 mg Chlorhexidine Gluconate (Peridex) 15 ml MM 0800,2000 [facility] Stop: 09/25/17 08:59 Last Admin: 07/30/17 09:31 Dose: 15 ml Hydromorphone HCl (Dilaudid) 1 mg IVP Q4HR PRN PRN Reason: Pain (Moderate-Severe) Stop: 09/26/17 12:24 Last Admin: 07/30/17 01:07 Dose: 1 mg Sodium Chloride (Nacl 0.9%) 1,000 mls @ 40 mls/hr IV .Q24H [facility] Stop: 09/25/17 20:44 Last Admin: 07/29/17 21:37 Dose: 40 mls/hr Cefepime HCl 1 gm/ Sodium (Chloride) 50 mls @ 100 mls/hr IV Q12HR [facility] Stop: 09/27/17 14:44 Last Infusion: 07/29/17 22:10 Dose: Infused Levofloxacin (Levaquin Pb) 500 mg in 100 mls @ 100 mls/hr IV Q24HR [facility] Stop: 09/27/17 18:44 Last Infusion: 07/29/17 21:05 Dose: Infused Lactobacillus Rhamnosus (Culturelle) 1 each PO DAILY [facility] Stop: 09/27/17 08:59 Last Admin: 07/30/17 08:22 Dose: 1 each Lorazepam (Ativan) 1 mg IVP Q6HR PRN; Protocol PRN Reason: AGITATION Stop: 09/26/17 01:09 Last Admin: 07/29/17 23:29 Dose: 1 mg Miscellaneous (Probiotic Screen) 1 ea MC PRN PRN PRN Reason: PROTOCOL Stop: 09/26/17 13:14 Pantoprazole Sodium (Protonix) 40 mg IVP DAILY [facility] Stop: 09/26/17 12:59 Last Admin: 07/30/17 08:26 Dose: 40 mg General: weak HEENT: NC/AT, PERRLA Neck: Supple Lungs: ronchi Cardiovascular: RRR, Normal S1, Normal S2, without murmur Abdomen: soft, non-tender, non-distended Extremities: excoriation Neurological: no change - Procedures Procedures: Procedures Procedure Code Date RESPIRATORY VENTILATION, 24-96 CONSECUTIVE HOURS [id number] 07/26/17 Internal Medicine Assmt/Plan - Assessment Assessment: acute respiratory failure septic shock pneumonia acute uti ankylosing spondylosis epilepsy vdrf - Plan Plan: vent support ivabx as per id dc planning in progress continue current plan of care Nutritional Asmnt/Malnutr-PDOC - Dietary Evaluation Malnutrition Findings (Please click <Entered> for more info): Nutritional Asmnt/Malnutrition Start: 07/27/17 07: 32 Text: Status: Complete Freq: Document 07/28/17 10:29 LCHENG (Rec: 07/28/17 11:23 LCHENG [email or web address]) Nutritional Asmnt/Malnutrition Patient General Information Nutritional Screening High Risk Diagnosis Pneumonia, Sepsis Pertinent Medical Hx/Surgical Hx S/P spinal fracture surgery Subjective Information Pt was admited for abnormal lab values, dx of pneumonia and sepsis. Pt is visited this morning, awake and alert, not able to talk on vent. Tube feeding is currently not running at this time. RN states pt is tolerating tube feeding well, no residual. No pain at this time. Current Diet Order/ Nutrition Support Peptamen 1.2, 55ml x 20hr from 12pm-8am, providing 1200kcal, 76g pro Patient / S.O Not Indicated Pertinent Medications Vitamin C, Vancomycin, Piperacilin, Sodium IV 40ml/hr Pertinent Labs 07/28: Na 137, K 4.1 (6.1 on ), Cl 104, BUN 22, Cr 0.4L, GLU 135H, Alb 2.4 L, Ca 8.3L, AST 43H, ALT 56H, Ammonia 77H Nutritional Hx/Data Height 5 ft 4 in Height (Calculated Centimeters) 162.6 Current Weight (lbs) 180 lb 4 oz Weight (Calculated Kilograms) 81.8 Weight (Calculated Grams) 16024.0 [place] Body Weight 120 % [place] Body Weight 150 Weight Status Obese GI Symptoms GI Symptoms None Food Allergies No Skin Integrity/Comment: Extremities edema: non-pitting 2+ Estimated Nutritional Goals BEE in Kcals: Adj wt of IBW Calories/Kcals/Kg 25-30 Kcals Calculated 5562-0269 Protein: Adj wt of IBW Protein g/k.2-1.5 Protein Calculated 74-92 Fluid: ml 1535-1842ml (1ml/kcal) Nutritional Problem 1. Problem Problem Increased nutrition needs ( calorie and protein) Etiology increased needs for recovery Signs/Symptoms: dx of pneumonia and sepsis Malnutrition Alert Protein-Calorie Malnutrition N/A Is there a minimum of two criteria No selected? Query Text:Check all the applicable criteria. A minimum of two criteria are recommended for diagnosis of either severe or non-severe malnutrition. Intervention/Recommendation Recommendations by RD Increase Calorie Intake Comments 1. current nutrition support provides 1200kcal, 74g protein , which meets 78% of calorie needs and 100% of protein needs 2. recommend increase tube feeding rate to 60ml/hr x 20hr to provide 1440kcal, 91g pro, meeting 94% of calorie needs and 1005 of protein needs. 3. monitor tube feeding rate, residual and tolerance. Expected Outcomes/Goals Expected Outcomes/Goals 1. Pt will receive 100% of nutrition needs via nutrition support, and tolerate goal rate. 2. Edema will improve 3. Pt may slightly gained wt due to edema. Monitor wt daily , wt will remain admission wt 4. Monitor labs, lab values to approach WNL 5. Skin stability
--- NOTE | 2017-07-30 18:34 | Progress Notes ---
DATE: 07/30/2017 PROBLEM LIST: 1. Acute on chronic respiratory failure. 2. Quadriparesis. 3. Right lung pneumonia versus possibly atelectasis. SYMPTOMS: Nil, feeling okay. No specific new symptoms. PHYSICAL EXAMINATION: VITAL SIGNS: ____, blood pressure 132/72, saturation 100% on 35% of oxygen. NECK: Veins not visualized. Good bilateral carotid upstroke. CHEST: Shows diminished air entry with occasional rhonchi. HEART: Regular. ABDOMEN: Soft, nontender. LABORATORY DATA: Chest x-ray: Shows slight opening of the right lower lobe, still persistent. Other laboratory studies: White count is 9.1, hemoglobin 8.6. ABG shows mild mixed alkalosis, pO2 of 60 on 30%. Electrolytes are okay. ASSESSMENT: The patient is clinically stable. Right lower lobe opening up a little bit. PLANS AND SUGGESTIONS: Okay to transfer. Continue current treatment. JOB# [id number]
== END 2017-07-30 17:00 | disposition home or self-care (01) | DRG 871 ==
LOC: ER 19:21 → ICU 22:00
PROVIDERS: ADMIT Internal Medicine; ATTEND Internal Medicine
PROC: 5A1945Z Respiratory Ventilation, 24-96 Consecutive Hours (ICD-10-PCS; principal; 2017-07-26)
DX: A41.9 Sepsis, unspecified organism (principal); J96.00 Acute respiratory failure, unspecified whether with hypoxia or hypercapnia; R65.21 Severe sepsis with septic shock; Z99.11 Dependence on respirator [ventilator] status; G82.50 Quadriplegia, unspecified; J15.211 Pneumonia due to Methicillin susceptible Staphylococcus aureus; J90 Pleural effusion, not elsewhere classified; N39.0 Urinary tract infection, site not specified; B96.20 Unspecified Escherichia coli [E. coli] as the cause of diseases classified elsewhere; G40.909 Epilepsy, unspecified, not intractable, without status epilepticus; M45.9 Ankylosing spondylitis of unspecified sites in spine; Z93.0 Tracheostomy status; Z79.82 Long term (current) use of aspirin
CPT/HCPCS: 36415-UA; 36600-90; 71010-TC; 80048-TC; 80053-TC; 80156-TC; 80164-TC; 80185-TC; 80202-TC; 81001-TC; 82140-TC; 82248-TC; 82803-TC; 82948-90; 83036-90; 83605; 84443-TC; 85025-TC; 87070; 87086-90; 90732; 93005; 94002; 94003; 94640; C9113; J0692; J1170; J1956; J2060; J2543; J3370; J7030; J7040; Z7610